=== PATIENT | male | born 1980 | race Caucasian/White ===

== ENCOUNTER 2019-04-07 20:00 | Outpatient (CLI) | payer BC, SELFPAY | END 2019-04-07 20:01 | disposition home or self-care (01) | LOC: SLEEP 04-08 09:31 | PROVIDERS: Family Provider Nurse Practitioner Family; Visit Provider Nurse Practitioner Family | DX: G47.33 Obstructive sleep apnea (adult) (pediatric) (principal) | CPT/HCPCS: 95810 ==

== ENCOUNTER 2019-05-06 20:00 | Outpatient (CLI) | payer BC, SELFPAY | END 2019-05-06 20:01 | disposition home or self-care (01) | LOC: SLEEP 05-07 09:42 | PROVIDERS: Family Provider Nurse Practitioner Family; Visit Provider Nurse Practitioner Family | DX: G47.33 Obstructive sleep apnea (adult) (pediatric) (principal) | CPT/HCPCS: 95810; 95811 ==

== ENCOUNTER 2020-09-13 09:07 | Outpatient (CLI) | payer BC, SELFPAY | END 2020-09-13 09:08 | disposition home or self-care (01) | LOC: WOUND 09:08 | PROVIDERS: Family Provider Nurse Practitioner Family; Visit Provider Thoracic Surgery (Cardiothoracic Vascular Surgery) | DX: L97.822 Non-pressure chronic ulcer of other part of left lower leg with fat layer exposed (principal) | CPT/HCPCS: 11042 ==

== ENCOUNTER 2020-09-15 14:11 | Outpatient (CLI) | payer BC, SELFPAY | END 2020-09-15 14:12 | disposition home or self-care (01) | LOC: WOUND 14:11 | PROVIDERS: Family Provider Nurse Practitioner Family; Visit Provider Nurse Practitioner Family | DX: L97.822 Non-pressure chronic ulcer of other part of left lower leg with fat layer exposed (principal) | CPT/HCPCS: 29581 ==

== ENCOUNTER 2020-09-22 07:41 | Outpatient (CLI) | payer BC, SELFPAY | END 2020-09-22 07:42 | disposition home or self-care (01) | LOC: WOUND 07:42 | PROVIDERS: Family Provider Nurse Practitioner Family; Visit Provider Thoracic Surgery (Cardiothoracic Vascular Surgery) | DX: I87.2 Venous insufficiency (chronic) (peripheral) (principal); L97.822 Non-pressure chronic ulcer of other part of left lower leg with fat layer exposed | CPT/HCPCS: 97597 ==

== ENCOUNTER 2020-09-29 08:41 | Outpatient (CLI) | payer BC, SELFPAY | END 2020-09-29 08:42 | disposition home or self-care (01) | LOC: WOUND 08:41 | PROVIDERS: Family Provider Nurse Practitioner Family; Visit Provider Surgery | DX: I87.2 Venous insufficiency (chronic) (peripheral) (principal); L97.822 Non-pressure chronic ulcer of other part of left lower leg with fat layer exposed | CPT/HCPCS: 11042 ==

== ENCOUNTER 2020-10-03 13:53 | Outpatient (CLI) | payer BC, SELFPAY | END 2020-10-03 13:54 | disposition home or self-care (01) | LOC: WOUND 13:54 | PROVIDERS: Family Provider Nurse Practitioner Family; Visit Provider Thoracic Surgery (Cardiothoracic Vascular Surgery) | DX: I87.2 Venous insufficiency (chronic) (peripheral) (principal); L97.822 Non-pressure chronic ulcer of other part of left lower leg with fat layer exposed | CPT/HCPCS: G0463 ==

== ENCOUNTER 2020-10-10 09:01 | Outpatient (CLI) | payer BC, SELFPAY | END 2020-10-10 09:02 | disposition home or self-care (01) | LOC: WOUND 09:02 | PROVIDERS: Family Provider Nurse Practitioner Family; Visit Provider Nurse Practitioner Family | DX: Z09 Encounter for follow-up examination after completed treatment for conditions other than malignant neoplasm (principal) | CPT/HCPCS: 99212 ==

== ENCOUNTER 2021-11-09 02:45 | Emergency (ER) | payer BC, SELFPAY ==
[2021-11-09 02:53] VITALS: BP 199/118; PULSE 102; RESP 20; TEMP 37.1; O2SAT 96; BMI 73.7
[2021-11-09 02:58] VITALS: PULSE 84; O2SAT 96
--- NOTE | 2021-11-09 02:59 | CTR_ITS ---
PROCEDURE INFORMATION: Exam: CT Abdomen And Pelvis Without Contrast Exam date and time: 11/09/2021 3:25 AM Age: 41 years old Clinical indication: Abdominal pain; Localized; Right upper quadrant (ruq); Prior surgery; Surgery type: Lap band. Appy; Patient HX: Ruq pain with nausea; Additional info: Abd pain TECHNIQUE: Imaging protocol: Computed tomography of the abdomen and pelvis without contrast. Radiation optimization: All CT scans at this facility use at least one of these dose optimization techniques: automated exposure control; mA and/or kV adjustment per patient size (includes targeted exams where dose is matched to clinical indication); or iterative reconstruction. COMPARISON: CT abdomen pelvis w con* [id number] 08/18/2018 11:09 PM RADIATION DOSE METRICS: Total DLP (mGy-cm): 2622.93 FINDINGS: Liver: Normal. No mass. Gallbladder and bile ducts: Normal. No calcified stones. No ductal dilation. Pancreas: Normal. No ductal dilation. Spleen: Normal. No splenomegaly. Adrenal glands: Normal. No mass. Kidneys and ureters: Normal. No hydronephrosis. Stomach and bowel: Continued previous lap band surgery. Appendix: Stable appendectomy. Intraperitoneal space: Unremarkable. No free air. No significant fluid collection. Vasculature: Unremarkable. No abdominal aortic aneurysm. Lymph nodes: Unremarkable. No enlarged lymph nodes. Urinary bladder: Unremarkable as visualized. Reproductive: Unremarkable as visualized. Bones/joints: Unremarkable. No acute fracture. Soft tissues: Unremarkable. CT/CT abdomen pelvis wo con [id number] IMPRESSION: 1. Continued previous lap band surgery. 2. Stable appendectomy.
--- NOTE | 2021-11-09 03:05 | ED_ITS ---
HPI - Abdominal Pain General: Chief Complaint: Abdominal Pain Stated Complaint: abd pain Time Seen by Provider: 11/09/21 02:57 Source: patient Mode of arrival: ambulatory Limitations: no limitations History of Present Illness: 41-year-old male states he started having severe epigastric and right upper quadrant pain 5 hours ago he states pain sharp in nature rates it a 7 out of 10 he had some nausea denies any vomiting he denies any radiation of his pain denies any chest pain. He has had a history of an appendectomy and a Lap-Band surgery before. Associated Symptoms: Denies chills, dysuria and fever(s) Review of Systems Const: Denies: fever(s), chills, body aches or change in appetite Eyes: Denies: blurry vision or eye discomfort ENMT: Denies: throat pain or dental pain Card: Denies: chest pain Resp: Denies: dyspnea GI: Reports: abdominal pain : Denies: dysuria Musc: Denies: neck pain or back pain Skin/Breast: Denies: rash Neuro: Denies: headache(s) Psych: Denies: depression Quirino/Lymph: Denies: easy bruising All/Imm: Denies: urticaria PFSH ED PFSH: Medical History (Updated 11/09/21 @ 04:05 by Donato Morris MD) Obesity Social History Smoking and tobacco status: current every day smoker Physical Exam Const: COMMON NORMALS: no acute distress, patient oriented x3 and healthy appearing HENMT: COMMON NORMALS: normocephalic and atraumatic HEAD & SCALP: normoceph alic and atraumatic Eye: COMMON NORMALS: Equal, round and reactive pupils present and EOMs intact bilaterally PUPIL: Yes Equal, round and reactive pupils present Neck/C-Spine: COMMON NORMALS: full ROM and supple Chest: COMMONS NORMALS: normal inspection of the chest and normal palpation of entire chest wall Resp: COMMON NORMALS: normal respiratory effort, No retractions, No use of accessory muscles and clear to auscultation bilaterally AUSCULTATION: clear to auscultation bilaterally Cardio: COMMON NORMALS: regular rate, regular rhythm and No murmurs present (Cardio) RATE: regular rate RHYTHM: regular rhythm GI: COMMON NORMALS: Normal to inspection, nondistended, normoactive bowel sounds present, Soft to palpation and no masses PALPATION: Yes Soft to palpation and Yes Tenderness to palpation present (GI) Details: RUQ Extremity: COMMON NORMALS: normal to inspection and full ROM Neuro: COMMON NORMALS: patient oriented x3, moves all extremities and no focal motor deficits Psych: COMMON NORMALS: mental status grossly normal, Normal thought process present and cooperative THOUGHT PROCESS: Normal thought process present Skin: COMMON NORMALS: no rashes or lesions noted and no wounds GENERAL SKIN EXAM: no rashes or lesions noted Course Vital Signs: Vital signs: Vital Signs Temperature 98.7 F 11/09/21 02:53 Pulse Rate 74 11/09/21 04:00 Respiratory Rate 16 11/09/21 04:00 Blood Pressure 162/109 11/09/21 04:00 Pulse Oximetry 91 11/09/21 04:00 Oxygen Delivery Me thod 11/09/21 04:00 MDM - Abdominal Pain Medical Decision Making Patient presents here with abdominal pain likely gastritis his pain is improved here after GI cocktail is CT scan here is normal blood work is normal he stable for discharge she is to follow-up with PCP and return if worsening he understands agrees to plan. Lab Data : 11/09/21 03:05 11/09/21 03:05 Labs/Radiology: Radiology Impressions Abdomen/Pelvis CT 11/09/21 02:59 IMPRESSION: 1. Continued previous lap band surgery. 2. Stable appendectomy. Laboratory Results WBC 8.3 10^3/uL (4.0-10.0) 11/09/21 03:05 RBC 5.42 10^6/uL (4.1-5.3) H 11/09/21 03:05 Hgb 16.0 g/dL (11.7-16.6) 11/09/21 03:05 Hct 49.9 % (42.0-52.0) 11/09/21 03:05 MCV 92.1 fl (80-94) 11/09/21 03:05 MCH 29.5 pg (28.0-34.0) 11/09/21 03:05 MCHC 32.1 g/dL (30.0-36.0) 11/09/21 03:05 RDW 14.7 % (12.1-15.1) 11/09/21 03:05 Plt Count 313 10^3/cmm (130-400) 11/09/21 03:05 MPV 9.6 fL (7.4-10.4) 11/09/21 03:05 Neut % (Auto) 57.3 % 11/09/21 03:05 Lymph % (Auto) 23.4 % 11/09/21 03:05 [place]asta % (Auto) 11.8 % 11/09/21 03:05 Eos % (Auto) 6.5 % 11/09/21 03:05 Baso % (Auto) 0.5 % 11/09/21 03:05 Neut # (Auto) 4.77 10^3/uL (1.8-7.7) 11/09/21 03:05 Lymph # (Auto) 2.0 10^3/uL (0.8-4.8) 11/09/21 03:05 [place] # (Auto) 1.0 10^3/uL (0.2-0.9) H 11/09/21 03:05 Eos # (Auto) 0.5 10^3/uL (0.0-0.8) 11/09/21 03:05 Baso # (Auto) 0.0 10^3/uL (0.0-0.1) 11/09/21 03:05 Nucleated RBC % (auto) 0 % 11/09/21 03:05 Nucleated RBCs # 0.0 /100WBC 11/09/21 03:05 Sodium 139 mmol/L (136-145) 11/09/21 03:05 Potassium 4.3 mmol/L (3.5-5.1) 11/09/21 03:05 Chloride 103 mmol/L (98-107) 11/09/21 03:05 Carbon Dioxide 25 mmol/L (22-29) 11/09/21 03:05 Anion Gap 15.3 (5-19) 11/09/21 03:05 BUN 12 mg/dL (6-20) 11/09/21 03:05 Creatinine 0.7 mg/dL (0.7-1.2) 11/09/21 03:05 GFR Calculation 123.7 mL/min (90-130) 11/09/21 03:05 Glucose 109 mg/dL (65-115) 11/09/21 03:05 Calculated Osmolality 288 mOsm/kg (285-295) 11/09/21 03:05 Calcium 8.9 mg/dL (8.5-10.5) 11/09/21 03:05 Total Bilirubin 0.5 mg/dL (0.15-1.2) 11/09/21 03:05 AST 15 U/L (0-40) 11/09/21 03:05 ALT 22 U/L (0-41) 11/09/21 03:05 Alkaline Phosphatase 80 U/L (40-130) 11/09/21 03:05 Total Protein 7.6 g/dL (6.6-8.7) 11/09/21 03:05 Albumin 4.0 g/dL (3.5-5.2) 11/09/21 03:05 Globulin 3.6 g/dL (1.3-4.6) 11/09/21 03:05 Lipase 19 U/L (13-60) 11/09/21 03:05 EKG Data EKG 1: I personally reviewed and interpreted this EKG as follows: EKG interpretation date: 11/09/21 EKG interpretation time: 03:20 Interpretation: nsr hr [address] or t wave abnormalities qrs 89 qtc 414 Discharge Plan Discharge Patient Disposition: Home Clinical Impression: Abdominal pain Condition: Stable Prescriptions: New Protonix 40 mg tablet,delayed release (DR/EC) 40 mg PO DAILY Qty: 60 0RF Discharge Orders: Discharge ED (Routine); Ordered 11/09/21 Ordered By: Donato Morris Referrals: David Jose DO [Primary Care Provider] - 1-3 days Discharge Diet: Advance as tolerated Discharge Activity: Resume usual activity Patient Instructions: Abdominal Pain (ED) Coding Level of Care Code ED Adult Literacy Instructor for Chg Fwd Exam Comprehensive
--- NOTE | 2021-11-09 03:06 | ECG_ITS ---
[facility] Test Date: 2021-11-09 Pat Name: Vern Gallo Department: Room: Gender: Male Medical Accountant: : 1980 Requested By: Donato Morris Order Number: [id number] Erik MD: Dhaval Bragg M.D. Measurements Intervals [place] Rate: 76 P: 12 TX: 152 QRS: 28 QRSD: 89 T: 35 QT: 384 QTc: 432 Interpretive Statements SINUS RHYTHM Compared to ECG 08/19/2018 01:15:14 T-wave abnormality no longer present Electronically Signed On 11-10-2021 9:18:44 CDT by Dhaval Bragg M.D. [email or web address] point mature adult care unitEversnapdunlap memorial hospital.[employer]/store/OM/[id number]
[2021-11-09 03:20] LABS: Basophils % 0.5 %; Eosinophils # 0.5 10^3/uL (0.0-0.8); Eosinophils % 6.5 %; Hematocrit 49.9 % (42.0-52.0); Lymphocytes % 23.4 %; Mean Corpuscular HGB Conc 32.1 g/dL (30.0-36.0); Mean Corpuscular Hemoglobin 29.5 pg (28.0-34.0); Mean Corpuscular Volume 92.1 fl (80-94); Mean Platelet Volume 9.6 fL (7.4-10.4); Monocytes % 11.8 %; Neutrophils # 4.77 10^3/uL (1.8-7.7); Neutrophils % 57.3 %; Nucleated Red Blood Cells % 0 %; Platelet Count 313 10^3/cmm (130-400); Red Blood Count 5.42 10^6/uL (4.1-5.3); Red Cell Distribution Width 14.7 % (12.1-15.1); White Blood Count 8.3 10^3/uL (4.0-10.0)
[2021-11-09] MEDS: lidocaine 2% viscous 15 ML, aluminum-mag hydrox-simethicon 30 ML, sucralfate oral liq 1 GM PO (03:23)
[2021-11-09] MEDS: HYDROmorphone 1 mg/mL INJ 1 mL 0.5 MG IVP (03:23)
[2021-11-09] MEDS: ondansetron 2 mg/ML SDV 2 mL 4 MG IVP (03:23)
[2021-11-09] MEDS: labetalol 5 mg/mL SDV 20mL 10 MG IVP (03:40)
[2021-11-09 03:44] VITALS: BP 173/104; PULSE 75; O2SAT 94
[2021-11-09 03:48] LABS: Alanine Aminotransferase 22 U/L (0-41); Alkaline Phosphatase 80 U/L (40-130); Anion Gap 15.3 (5-19); Aspartate Amino Transferase 15 U/L (0-40); Blood Urea Nitrogen 12 mg/dL (6-20); Calcium 8.9 mg/dL (8.5-10.5); Carbon Dioxide 25 mmol/L (22-29); Chloride 103 mmol/L (98-107); Globulin 3.6 g/dL (1.3-4.6); Glomerular Filtration Rate 123.7 mL/min (90-130); Glucose 109 mg/dL (65-115); Lipase 19 U/L (13-60); Osmolality Calculated 288 mOsm/kg (285-295); Potassium 4.3 mmol/L (3.5-5.1); Sodium 139 mmol/L (136-145); Total Bilirubin 0.5 mg/dL (0.15-1.2); Total Protein 7.6 g/dL (6.6-8.7)
[2021-11-09 04:00] VITALS: BP 162/109; PULSE 74; RESP 16; O2SAT 91
[2021-11-09] MEDS: HYDROcodone-acetaminophen 5-325 mg Tablet 1 TAB PO (04:35)
[2021-11-09 04:40] VITALS: BP 170/102; PULSE 70; RESP 17; O2SAT 94
== END 2021-11-09 04:41 | disposition home or self-care (01) ==
PROVIDERS: Emergency Provider Emergency Medicine; PCP Internal Medicine Gastroenterology
DX: R10.9 Unspecified abdominal pain (principal); F17.210 Nicotine dependence, cigarettes, uncomplicated
CPT/HCPCS: 74176; 80053; 83690; 85025; 93005; 96374; 96375; 99285; J1170; J2405; J3490

== ENCOUNTER 2022-09-03 11:05 | Emergency (ER) | payer OTHER, SELFPAY ==
[2022-09-03 11:11] VITALS: BP 178/95; PULSE 96; RESP 20; TEMP 36.6; O2SAT 95
--- NOTE | 2022-09-03 11:19 | XR_ITS ---
WS: [id number] EXAMINATION: XR chest 1V portable [id number] REASON FOR EXAM: dyspnea coughing ORDER DATE: 09/03/2022 11:21 AM FINDINGS: There are perihilar and parenchymal granulomatous calcifications. Cardiomegaly is demonstrated. Ther e is an atherosclerotic aorta containing calcified plaque. There are no pleural effusions. XR/XR chest 1V portable [id number] IMPRESSION: CARDIOMEGALY WITH NO ACUTE PULMONARY CHANGE.
--- NOTE | 2022-09-03 11:21 | ED_ITS ---
HPI - SOB/Dyspnea General: Chief Complaint: Shortness of Breath/Dyspnea Stated Complaint: SOB Time Seen by Provider: 09/03/22 11:16 History of Present Illness: HPI Narrative: Patient presents ER with complaints of shortness of breath over the last for 5 days. Patient has been coughing a lot of green-colored sputum. Patient gets short of breath with any exertion. Patient says his swelling in his bilateral lower extremities may be worse than normal. MD elicited complaint: shortness of breath and cough Onset (ago): day(s) (5 days ago) Timing: constant Severity: mild Exacerbating factors: exertion Relieving factors: nothing Associated symptoms: Reports cough Treatment prior to arrival: none Review of Systems General: Reports: 10 or more systems reviewed and unremarkable except in HPI and below PFSH ED PFSH: Medical History Obesity Social History Smoking and tobacco status: current every day smoker Physical Exam Const: COMMON NORMALS: no acute distress, patient oriented x3, no limitations, alert and well nourished NUTRITIONAL APPEARANCE: obese HENMT: COMMON NORMALS: normocephalic, atraumatic, hearing grossly normal bilaterally, external ears normal, Normal external nose present and moist oral mucous membranes HEAD & SCALP: normocephalic and atraumatic NOSE: Normal external nose present EXTERNAL EAR: Yes external ears normal Eye: COMMON NORMALS: Equal, round and reactive pupils present, EOMs intact bilaterally, conjunctivae normal and no scleral icterus CONJUNCTIVA: Yes conjunctivae normal PUPIL: Yes Equal, round and reactive pupils present Neck/C-Spine: COMMON NORMALS: full ROM, no lymphadenopathy, supple, no meningeal signs, no JVD and Thyroid normal THYROID: Thyroid normal Chest: COMMONS NORMALS: normal inspection of the chest and normal palpation of entire chest wall Resp: OTHER: Clear but decreased secondary to body habitus Cardio: COMMON NORMALS: no JVD, regular rate, regular rhythm, S1 normal heart sound present and S2 normal heart sound present RATE: regular rate RHYTHM: regular rhythm HEART SOUNDS: S1 normal heart sound present and S2 normal heart sound present GI: COMMON NORMALS: Normal to inspection, nondistended, normoactive bowel sounds present, Soft to palpation, non-tender, No hepatosplenomegaly present and no masses PALPATION: Yes Soft to palpation and Yes No hepatosplenomegaly present Extremity: OTHER: 2-3+ pitting edema bilateral lower extremities up to at least the knees Neuro: COMMON NORMALS: patient oriented x3 SENSORIUM/ORIENTATION: Yes alert MENINGEAL SIGNS: Yes no meningeal signs Course Vital Signs: Vital signs: Vital Signs Temperature 97.9 F 09/03/22 11:11 Pulse Rate 89 09/03/22 12:13 Respiratory Rate 20 H 09/03/22 11:11 Blood Pressure 164/126 09/03/22 12:13 Pulse Oximetry 96 09/03/22 12:13 Oxygen Delivery Me thod Room Air 09/03/22 12:13 MDM - SOB/Dyspnea Medical Decision Making Patient presents to the ER with shortness of breath and cough for about 3 days. Patient's O2 sat stayed above 90% the entire time he was here patient is morbidly obese. Lab work and x-ray was obtained which is essentially benign. Patient will be given 1 DuoNeb treatment and if it seems to symptomatically help his shortness of breath he will be discharged with a prescription for DuoNeb. Patient should follow-up with his PCP in the next 7 to 10 days. Differential Diagnosis Likely congestive heart failure and community acquired pneumonia; Unlikely acute exacerbation of chronic obstructive airways disease, asthma with exacerbation or pulmonary embolism Medical Records I reviewed the patient's medical records. Lab Data I reviewed the patient's lab results. 09/03/22 11:27 09/03/22 11:27 Labs/Radiology: Radiology Impressions Chest X-Ray 09/03/22 11:19 IMPRESSION: CARDIOMEGALY WITH NO ACUTE PULMONARY CHANGE. Laboratory Results WBC 10.4 10^3/uL (4.0-10.0) H 09/03/22 11:27 RBC 4.62 10^6/uL (4.1-5.3) 09/03/22 11:27 Hgb 13.4 g/dL (11.7-16.6) 09/03/22 11:27 Hct 42.0 % (42.0-52.0) 09/03/22 11:27 MCV 90.9 fl (80-94) 09/03/22 11:27 MCH 29.0 pg (28.0-34.0) 09/03/22 11:27 MCHC 31.9 g/dL (30.0-36.0) 09/03/22 11:27 RDW 14.0 % (12.1-15.1) 09/03/22 11:27 Plt Count 262 10^3/cmm (130-400) 09/03/22 11:27 MPV 9.6 fL (7.4-10.4) 09/03/22 11:27 Neut % (Auto) 68.3 % 09/03/22 11:27 Lymph % (Auto) 14.7 % 09/03/22 11:27 [place]ne % (Auto) 12.7 % 09/03/22 11:27 Eos % (Auto) 3.6 % 09/03/22 11:27 Baso % (Auto) 0.3 % 09/03/22 11:27 Neut # (Auto) 7.08 10^3/uL (1.8-7.7) 09/03/22 11:27 Lymph # (Auto) 1.5 10^3/uL (0.8-4.8) 09/03/22 11:27 [place]ne # (Auto) 1.3 10^3/uL (0.2-0.9) H 09/03/22 11:27 Eos # (Auto) 0.4 10^3/uL (0.0-0.8) 09/03/22 11:27 Baso # (Auto) 0.0 10^3/uL (0.0-0.1) 09/03/22 11:27 Nucleated RBC % (auto) 0 % 09/03/22 11:27 Nucleated RBCs # 0.0 /100WBC 09/03/22 11:27 Sodium 138 mmol/L (136-145) 09/03/22 11:27 Potassium 4.1 mmol/L (3.5-5.1) 09/03/22 11:27 Chloride 102 mmol/L (98-107) 09/03/22 11:27 Carbon Dioxide 23 mmol/L (22-29) 09/03/22 11:27 Anion Gap 17.1 (5-19) 09/03/22 11:27 BUN 11 mg/dL (6-20) 09/03/22 11:27 Creatinine 0.7 mg/dL (0.7-1.2) 09/03/22 11:27 GFR Calculation 123.7 mL/min (90-130) 09/03/22 11:27 Glucose 95 mg/dL (65-115) 09/03/22 11:27 Calculated Osmolality 285 mOsm/kg (285-295) 09/03/22 11:27 Calcium 8.6 mg/dL (8.5-10.5) 09/03/22 11:27 Total Bilirubin 0.9 mg/dL (0.15-1.2) 09/03/22 11:27 AST 20 U/L (0-40) 09/03/22 11:27 ALT 25 U/L (0-41) 09/03/22 11:27 Alkaline Phosphatase 68 U/L (40-130) 09/03/22 11:27 NT-Pro-B Natriuret Pep 247 pg/mL (0-125) H 09/03/22 11:27 Total Protein 7.2 g/dL (6.6-8.7) 09/03/22 11:27 Albumin 3.4 g/dL (3.5-5.2) L 09/03/22 11:27 Globulin 3.8 g/dL (1.3-4.6) 09/03/22 11:27 Influenza Type A Ag negative (Negative) 09/03/22 11:37 Influenza Type B Ag negative (Negative) 09/03/22 11:37 SARS-CoV-2 Ag (Rapid) negative (Negative) 09/03/22 11:37 Discharge Plan Discharge Patient Disposition: Home Clinical Impression: Acute dyspnea Obesity Qualifiers: Obesity type: unspecified obesity type Obesity classification: unspecified obesity classification Serious obesity comorbidity presence: unspecified whether serious comorbidity present Qualified Code(s): E66.9 - Obesity, unspecified Condition: Stable Prescriptions: New albuterol sulfate 2.5 mg/0.5 mL solution for nebulization 2.5 mg inhalation QID PRN (Reason: shortness of breath or wheezing) Qty: 30 0RF No Action Protonix 40 mg tablet,delayed release (DR/EC) 40 mg PO DAILY Qty: 60 0RF Discharge Orders: Discharge ED (Routine); Ordered 09/03/22 Ordered By: Joshua Baxter Referrals: David Jose DO [Primary Care Provider] - Patient Instructions: Dyspnea Activity Restrictions/Additional Instructions: Follow-up with your PCP in approximately 7 to 10 days for further work-up. Please use your nebulizer with albuterol as prescribed. Please return to the ER for worsening symptoms and signs. Coding Level of Care Code ED Blaster Helper for Daly Godfrey
[2022-09-03 11:40] LABS: Basophils % 0.3 %; Eosinophils # 0.4 10^3/uL (0.0-0.8); Eosinophils % 3.6 %; Hemoglobin 13.4 g/dL (11.7-16.6); Lymphocytes # 1.5 10^3/uL (0.8-4.8); Lymphocytes % 14.7 %; Mean Corpuscular HGB Conc 31.9 g/dL (30.0-36.0); Mean Corpuscular Volume 90.9 fl (80-94); Mean Platelet Volume 9.6 fL (7.4-10.4); Monocytes # 1.3 10^3/uL (0.2-0.9); Monocytes % 12.7 %; Neutrophils # 7.08 10^3/uL (1.8-7.7); Neutrophils % 68.3 %; Nucleated Red Blood Cells % 0 %; Platelet Count 262 10^3/cmm (130-400); Red Blood Count 4.62 10^6/uL (4.1-5.3); White Blood Count 10.4 10^3/uL (4.0-10.0)
[2022-09-03 12:07] LABS: Influenza A by IFA negative (Negative); Influenza B by IFA negative (Negative); SARS Covid-2 Antigen negative (Negative)
[2022-09-03 12:09] LABS: Alanine Aminotransferase 25 U/L (0-41); Albumin Level 3.4 g/dL (3.5-5.2); Alkaline Phosphatase 68 U/L (40-130); Anion Gap 17.1 (5-19); Aspartate Amino Transferase 20 U/L (0-40); Blood Urea Nitrogen 11 mg/dL (6-20); Calcium 8.6 mg/dL (8.5-10.5); Carbon Dioxide 23 mmol/L (22-29); Chloride 102 mmol/L (98-107); Globulin 3.8 g/dL (1.3-4.6); Glomerular Filtration Rate 123.7 mL/min (90-130); Glucose 95 mg/dL (65-115); NT Pro B Type Natriuretic Pept 247 pg/mL (0-125); Osmolality Calculated 285 mOsm/kg (285-295); Potassium 4.1 mmol/L (3.5-5.1); Sodium 138 mmol/L (136-145); Total Bilirubin 0.9 mg/dL (0.15-1.2); Total Protein 7.2 g/dL (6.6-8.7)
[2022-09-03 12:13] VITALS: BP 164/126; PULSE 89; O2SAT 96
[2022-09-03 12:55] VITALS: PULSE 79; RESP 22; O2SAT 97
[2022-09-03] MEDS: ipratropium-albuterol 3 mL Neb INHALATION (13:00)
[2022-09-03 13:13] VITALS: PULSE 89
[2022-09-03 13:21] VITALS: BP 195/109; PULSE 90; O2SAT 95
== END 2022-09-03 13:23 | disposition home or self-care (01) ==
PROVIDERS: Emergency Provider Emergency Medicine; PCP Internal Medicine Gastroenterology
DX: R06.00 Dyspnea, unspecified (principal); E66.9 Obesity, unspecified; Z68.45 Body mass index [BMI] 70 or greater, adult; Z20.822 Contact with and (suspected) exposure to COVID-19; F17.210 Nicotine dependence, cigarettes, uncomplicated
CPT/HCPCS: 36415; 71045; 80053; 83880; 85025; 87426; 87804; 94640; 99284

== ENCOUNTER → 2023-06-02 15:13 | Outpatient (BNVA) | payer OTHER, SELFPAY | PROVIDERS: PCP Internal Medicine Gastroenterology; Visit Provider Family Medicine | DX: R10.11 Right upper quadrant pain (principal); Z00.00 Encounter for general adult medical examination without abnormal findings | CPT/HCPCS: 80053; 80061; 86803; 87806 ==

== ENCOUNTER → 2024-04-13 14:41 | Outpatient (BNVA) | payer OTHER, SELFPAY | PROVIDERS: PCP Family Medicine; Visit Provider Family Medicine | DX: I10 Essential (primary) hypertension (principal) | CPT/HCPCS: 80053 ==

== ENCOUNTER 2024-05-03 06:16 | Day surgery (SDC) | payer OTHER, SELFPAY ==
--- NOTE | 2024-05-02 12:21 | P.ANESASSM_ITS ---
Pre-Anesthetic Assessment Height/Weight: Height 5 ft 8 in Operation Date: 05/03/24 07:30 Proposed Procedures p EGD 50915, R10.13, R12(Not Applicable) - Franklin Dawson MD Anesthetic Plan ASA status: 3 Anesthesia: Choice Other: No prior issues with anesthesia NPO since yesterday evening History of hypertension on lisinopril GERD on omeprazole ANITHA on CPAP BMI 75, 498 pounds Chronic smoker Labs reviewed 04/13/2024 and acceptable for procedure EKG sinus rhythm Medications/Allergies Home Medications ?Medication ?Instructions ?Recorded ?Confirmed ?Last Taken ?Type ondansetron 8 mg disintegrating 8 mg PO Q8H PRN nausea and 03/30/24 04/29/24 Unknown Rx tablet vomiting #10 tabs tramadol 50 mg tablet 50 mg PO Q8H PRN pain 3 days #10 04/06/24 04/29/24 04/29/24 Rx tabs sucralfate 100 mg/mL oral 10 ml PO BID 30 days #840 mL 04/09/24 04/29/24 04/29/24 Rx suspension lisinopril 20 mg tablet 20 mg PO DAILY 04/29/2404/1704/29/24 History omeprazole 40 mg capsule,delayed 40 mg PO BID 04/29/24 04/29/24 04/29/24 History release Allergies Allergy/AdvReac Type Severity Reaction Status Date / Time Penicillins Allergy Unknown Verified 04/29/24 08:58 [facility] Anesthesia Medical History Smoker Cardiomegaly Atherosclerosis Obesity Surgical History History of tonsillectomy and adenoidectomy History of laparoscopic adjustable gastric banding History of appendectomy Family History Mother Hypertension CAD (coronary artery disease) Brother Stroke CAD (coronary artery disease) ALS (amyotrophic lateral sclerosis) Social History Smoking and tobacco/nicotine status: current every day tobacco/nicotine user cigarettes Packs smoked per day: 0.5 Quit status (tobacco/nicotine): considering quitting Alcohol intake: current Alcohol intake frequency: holidays/special occasions only Substance/Drug Use: never Lives independently: Yes Household members: family Marital status: Number of children: 0 Current occupational status: employed Current occupation: [employer] Leisure activites: [employer] Special irena needs: No Agree to transfusion: Yes Data Anesthesia Cardiac Studies: No Data to Display
[2024-05-03] VITALS (10 sets, daily range): BP systolic 134–154; BP diastolic 77–102; PULSE 73–87; RESP 10–18; TEMP 36.1–36.6; O2SAT 92–96; BMI 75.6
--- NOTE | 2024-05-03 07:01 | W.PM.OPSUD ---
Surgery/Procedure H&P Update DATE OF PROCEDURE: May 03, 2024 DATE H&P PERFORMED: 04/05/24 H&P UPDATE INFORMATION: I have reviewed H&P completed within last 30 days, I have examined patient prior to procedure and No changes to prior documentation PLANNED PROCEDURE: Operation Date: 05/03/24 07:30 Proposed Procedures p EGD 46526, R10.13, R12(Not Applicable) - Franklin Dawson MD
--- NOTE | 2024-05-03 09:05 | ANE.PACU2 ---
Inpatient post-anesthesia follow up: Airway intact: Yes Vital signs: Temperature 97.6 F Pulse Rate 74 Respiratory Rate 14 Blood Pressure 154/94 Pulse Oximetry 96 Oxygen Delivery Me thod Room Air Oxygen Flow Rate Fraction of Inspir ed Oxygen Hydration adequate: Yes Nausea and vomiting: No Pain level: 1 Mental status: Baseline
== END 2024-05-03 09:05 | disposition home or self-care (01) ==
PROVIDERS: PCP Family Medicine; Visit Provider Student in an Organized Health Care Education/Training Program
PROC: 0DJ08ZZ Inspection of Upper Intestinal Tract, Via Natural or Artificial Opening Endoscopic (ICD-10-PCS; principal; 2024-05-03 07:30)
DX: K29.50 Unspecified chronic gastritis without bleeding (principal); I10 Essential (primary) hypertension; Z79.899 Other long term (current) drug therapy; G47.33 Obstructive sleep apnea (adult) (pediatric); K21.9 Gastro-esophageal reflux disease without esophagitis; Z68.45 Body mass index [BMI] 70 or greater, adult; Z88.0 Allergy status to penicillin; Z98.84 Bariatric surgery status; F17.210 Nicotine dependence, cigarettes, uncomplicated; R19.7 Diarrhea, unspecified
CPT/HCPCS: 43239; 88305; J0330; J2704; J3490

== ENCOUNTER 2024-11-26 16:32 | Inpatient (IN) | payer SELFPAY ==
--- OUTSIDE RECORDS SUMMARY | 2018-01-19 08:23 | XMS_ITS | Continuity of Care Document ---
Author Organization [facility] Address [address] [place] [id number] Phone Care Team Providers Care Aquatics Lifeguard Name Role Phone Alonso Menendez Unavailable Unavailable Advance Directives Directive Yes / No Effective Date File Name No Information Encounters Encounter Description Practice Location Reason(s) For Visit Diagnoses Date Provider Providers Copied on Encounter [facility], [address] [place] [address], [facility], tel:[phone] *[facility] No Information Gemma Gupta. [address] [place] [address], [facility], [place]. tel:[phone] Family History Family Member Type Diagnosis Age At Onset No Information Payers Payer name Insurance type Covered libertarian ID Authoriza tion(s) No Information Social History Type Description Quantity Date Captured Comments Sex Male Smoking Status No Information Chief Complaint And Reason For Visit No Information Reason For Referral Reason For Referral No Information History Of Present Illness Encounter Date Complaint History Of Prese nt Illness No Information Functional Status Date Functional Assessmen t No Information Instructions Date Instruction Additional Infor mation No Information Assessments Type Assessment Date No Information Patient Care Teams Name Effective Dates (start - stop) Status Members No Information
[2024-11-26] VITALS (10 sets, daily range): BP systolic 131–144; BP diastolic 49–88; PULSE 84–136; RESP 19–30; TEMP 37.6–39.6; O2SAT 92–96; BMI 79.0; BMI 83.3; BMI 83.8
--- NOTE | 2024-11-26 16:37 | ECG_ITS ---
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1980 Requested By: Irvin Talley Order Number: [id number] Erik MD: ARACELI VILLALTA Measurements Intervals [place] Rate: 133 P: 57 HI: 167 QRS: -28 QRSD: 84 T: 73 QT: 282 QTc: 419 Interpretive Statements SINUS TACHYCARDIA POSSIBLE RIGHT VENTRICULAR CONDUCTION DELAY [RSR (QR) IN V1/V2] SEPTAL MYOCARDIAL INFARCTION , PROBABLY OLD [40+ ms Q WAVE IN V1/V2] Compared to ECG 11/09/2021 03:20:00 Myocardial infarct finding now present Sinus rhythm no longer present Electronically Signed On 11-26-2024 20:08:39 CDT by ARACELI VILLALTA [email or web address]
--- OUTSIDE RECORDS SUMMARY | 2024-11-26 16:37 | XMS_ITS | Patient Health Record ---
Author Organization [facility] Address [address] [place] [address] Care Team Providers Care Manager Internship Name Role Phone Annmarie Castillo Primary Care Provider Allergies Allergen (clinical drug ingredient) Drug/Non Drug Allergy documented on EMR Reaction Allergy Type Onset Date Status Penicillin unknown Drug Allergy Active Reason For Referral No Information Medications Medication SIG (Take, Route, Frequency, Duration) Notes Start Date End Date Status Potassium Chloride ER 10 MEQ Capsule Extended Release 1 capsule with food Orally Twice a day; Duration: 30 day(s) 01/04/2020 Active Furosemide 20 MG Tablet 1 tablet Orally Once a day in AM; Duration: 30 day(s) Activ e metFORMIN HCl 500 MG Tablet 1 tablet with a meal Orally Once a day Active Benazepril HCl 20 MG Tablet 1 tablet Orally Once a day; Duration: 90 days 04/21/2019 Active Sertraline HCl 50 MG Tablet 1 tablet Orally Once a day; Duration: 90 days Active amLODIPine Besylate 10 MG Tablet 1 tablet Orally once daily in evening for blood pressure; Duration: 30 day(s) Active Social History Tobacco Use: Social History Observation Description Date Details (start date - stop date) Current Smoker NA - NA Social History Drugs/Alcohol: Social Info Question Answer Notes Alcohol Screen (Audit-C) Did you have a drink containing alcohol in the past year? No Points 0 Interpretation Negative Drugs Have you used drugs other than those for medical reasons in the past 12 months? No Tobacco Use: Social Info Question Answer Notes xTobacco Use/Smoking Are you a current smoker How often do you smoke cigarettes? every day How many cigarettes a day do you smoke? 11-20 How soon after you wake up do you smoke your first cigarette? 6-30 minutes Are you interested in quitting? Thinking about quitting Additional Details Category Social Info Options Details Drugs/Alcohol: Do you smoke marijuana? De nies Do you drink alcohol? No Problems Problem Type SNOMED Code ICD Code Onset Dates Problem Status W/U Status Risk Notes Problem Morbid obesity (835666200) Morbid obesity (278.01) 02/05/20 Problem resolved confirmed [id number]- Problem Obstructive sleep apnea syndrome (82921206) Obstructive sleep apnea (adult) (pediatric) (327.23) 02/05/20 Active confirmed [id number]- Problem Obstructive sleep apnea (34719318) Obstructive sleep apnea (G47.33) Active confirmed Problem Needs influenza immunization (073644060) Vaccination against other viral diseases, Influenza (V04.81) 02/05/20 Problem resolved confirmed [id number]- Problem Mixed anxiety and depressive disorder (676783825) Depression with anxiety (300.4) 02/05/20 Problem resolved confirmed [id number]- Problem Essential hypertension (63088165) Essential hypertension (401.1) 02/05/20 Active confirmed [id number]- Problem Impacted cerumen (83436205) External cerumen impaction (380.4) 02/05/20 Problem resolved confirmed [id number]- Problem Neoplasm 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 (59582908) Unspecified skin lesion (239.2) 02/05/20 Problem resolved confirmed [id number] 11- Plan Of Treatment No Information Insurance Providers Payer Name Payer Address Payer Phone Subscriber Number Group Number Insured Name Patient Relationship to Insured Coverage Start Date Coverage End Date BCBS ID Commercial [address] [address] [place] [address] [id number] Vern Gallo Self - patient is the insured Medical (General) History Medical History History ICD Code PREVENTIVE HEALTH MAINTENANCE Colonoscopy-Has never been done Occult Stool: Has never been done Cologuard: Has never been done Endoscopy- Has never been done Nuclear stress test- 2007 which was norm al Exercise stress test- Has never been don e Echocardiogram- Has never been done Carotid doppler- Has never been done CT chest- Has never been done Chest xray: Has never been done PFTS- Has never been done 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 Bone Density: Has never been done Influenza vaccine- 01/04/20 Pneumococcal vaccine- Given script 02/04 Prenvar 13- Has never been done Shingles vaccine- Has never been done Shingrix- Has never been done Tetanus vaccine- 01/2019 Pertussis Vaccine: 01/2019 Hep C screening: Has never been done Eye Exam: 05/2019 Diabetic foot exam: Has never been done Microalbumin (urine): 02/09/2019 PAST MEDICAL HISTORY Hypertension Type 2 diabetes Obesity Sleep apnea Asthma GERD Osteoarthritis Allergies; perennial Generalized anxiety disorder Depression Surgical History Surgery Date(Month/Year) Appendectomy 2007 Tonsillectomy/Adenoidectomy at age 9 Lap band surgery 2007 Hospitalization History Reason Date(Month/Year) Lap band surgery Tonsillectomy/Adenoidectomy Appendectomy
--- OUTSIDE RECORDS SUMMARY | 2024-11-26 16:37 | XMS_ITS | Clinical Summary ---
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
--- NOTE | 2024-11-26 16:44 | ED_ITS ---
HPI - General Adult 2 General: Chief complaint: Weakness Stated complaint: R leg swollen can't stay awake Time Seen by Provider: 11/26/24 16:37 History of Present Illness: 44-year-old male presents emergency room with right leg swollen inflamed and tender to the touch has not felt well. Has had a fever at home. Is difficult time staying awake. Has been somewhat short of breath as well. Denies any chest pain no abdominal pain no vomiting or diarrhea Associated symptoms: Deny chest pain, dyspnea or rash Related Data Home Medications ?Medication ?Instructions ?Recorded ?Confirmed No Known Home Medications 11/26/2411/15 Allergies Allergy/AdvReac Type Severity Reaction Status Date / Time Penicillins Allergy Unknown Verified 04/29/24 08:58 Review of Systems 2 Const: Denies: fever(s) or chills Card: Denies: chest pain Resp: Denies: dyspnea GI: Denies: abdominal pain : Denies: dysuria, urinary frequency or urinary urgency Musc: Denies: neck pain or back pain Skin/Breast: Denies: rash PFSH ED 2 PFSH: Medical History Smoker Cardiomegaly Atherosclerosis Obesity Surgical History History of tonsillectomy and adenoidectomy History of laparoscopic adjustable gastric banding History of appendectomy Family History Mother Hypertension CAD (coronary artery disease) Brother Stroke CAD (coronary artery disease) ALS (amyotrophic lateral sclerosis) Social History Smoking and tobacco/nicotine status: current every day tobacco/nicotine user cigarettes Packs smoked per day: 0.5 Quit status (tobacco/nicotine): considering quitting Alcohol intake: current Alcohol intake frequency: holidays/special occasions only Substance/Drug Use: never Lives independently: Yes Household members: family Marital status: Number of children: 0 Current occupational status: employed Current occupation: [employer] Leisure activites: [employer] Special irena needs: No Agree to transfusion: Yes Physical Exam 2 Const: GENERAL APPEARANCE: cooperative ORIENTATION/CONSCIOUSNESS: Yes awake, Yes oriented to person, Yes oriented to place and Yes oriented to time HENMT: COMMON NORMALS: normocephalic, atraumatic and hearing grossly normal bilaterally HEAD & SCALP: normocephalic and atraumatic Resp: COMMON NORMALS: normal respiratory effort, No retractions, No use of accessory muscles and clear to auscultation bilaterally AUSCULTATION: clear to auscultation bilaterally Cardio: COMMON NORMALS: regular rate, regular rhythm and No murmurs present (Cardio) RATE: regular rate RHYTHM: regular rhythm GI: COMMON NORMALS: Soft to palpation and No hepatosplenomegaly present A USCULTATION: Yes normoactive bowel sounds PALPATION: Yes Soft to palpation, No Tenderness to palpation present (GI), No Guarding due to palpation present (GI) and Yes No hepatosplenomegaly present Extremity: OTHER: Left lower leg red and inflamed skin indurated 3+ edema Neuro: SENSORIUM/ORIENTATION: Yes oriented to person, Yes oriented to place and Yes oriented to time Skin: COMMON NORMALS: no rashes or lesions noted GENERAL SKIN EXAM: no rashes or lesions noted Course 2 Vital Signs: Vital signs: Vital Signs Temperature 96.9 F L 11/29/24 11:59 Pulse Rate 100 11/29/24 12:02 Respiratory Rate 16 11/29/24 12:02 Blood Pressure 156/93 11/29/24 11:59 Pulse Oximetry 100 11/29/24 12:02 Oxygen Delivery Me thod Nasal Cannula 11/29/24 12:02 Oxygen Flow Rate 3 11/29/24 12:02 [facility] - General Adult Medical Decision Making Left lower leg cellulitis. Will start on IV antibiotics discussed with hospitalist. Patient has sepsis with acute renal failure but no septic shock. Laboratory test reviewed antibiotics initiated. Orders written Medical Records I reviewed the patient's medical records. Lab Data I reviewed the patient's lab results. 11/28/24 10:07 11/28/24 10:07 Radiology Impressions Venous Duplex 11/26/24 18:16 IMPRESSION: Limited examination without sonographic evidence of deep venous thrombosis. Laboratory Results WBC 19.19 10^3/uL (3.29-11.43) H 11/27/24 03:26 RBC 4.89 10^6/uL (3.85-5.65) 11/27/24 03:26 Hgb 14.60 g/dL (11.27-16.99) 11/27/24 03: Hct 44.2 % (37-53) 11/27/24 03: MCV 90.4 fl (82-101) 11/27/24 03: MCH 29.9 pg (27-33) 11/27/24 03: MCHC 33.0 g/dL (30-55) 11/27/24 03: RDW 14.5 % (12.1-15.1) 11/27/24 03: Plt Count 184 10^3/cmm (157-399) 11/27/24 03: MPV 9.7 fL (7.4-10.4) 11/27/24 03: Neut % (Auto) 87.8 % 11/27/24 03: Lymph % (Auto) 5.0 % 11/27/24 03: [place] % (Auto) 5.9 % 11/27/24 03: Eos % (Auto) 0.0 % 11/27/24 03: Baso % (Auto) 0.3 % 11/27/24 03: Neut # (Auto) 16.83 10^3/uL (1.8-7.7) H 11/27/24 03: Lymph # (Auto) 1.0 10^3/uL (0.8-4.8) 11/27/24 03: [place] # (Auto) 1.1 10^3/uL (0.2-0.9) H 11/27/24 03: Eos # (Auto) 0.0 10^3/uL (0.0-0.8) 11/27/24 03: Baso # (Auto) 0.1 10^3/uL (0.0-0.1) 11/27/24 03: Nucleated RBC % (auto) 0 % 11/27/24 03: Nucleated RBCs # 0.0 /100WBC 11/27/24 03: Specimen Type Arterial 11/26/24 17:04 Sample Site Brachial, right 11/26/24 17:04 ABG pH 7.49 (7.35-7.45) H 11/26/24 17:04 ABG pCO2 32.4 mmHg (35-45) L 11/26/24 17:04 ABG pO2 61.3 mmHg (80.0-100.0) L 11/26/24 17:04 ABG PO2/FiO2 Ratio 255 11/26/24 17:04 ABG HCO3 24.6 mmol/L (22-26) 11/26/24 17:04 ABG O2 Saturation 92.7 11/26/24 17:04 ABG Base Excess 2.0 mmol/L (-2.0-2.0) 11/26/24 17:04 José Test N/a 11/26/24 17:04 A-a O2 Gradient 9.0 mmHg (5-10) 11/26/24 17:04 Hematocrit 48.3 % (42-52) 11/26/24 17:04 Hgb O2 Saturation 91.0 % (95-100) L 11/26/24 17:04 Carboxyhemoglobin 1.1 %THgb (0.4-20.1) 11/26/24 17:04 Methemoglobin 0.8 % (0.4-1.5) 11/26/24 17:04 Total Hemoglobin 15.8 g/dL (14-18) 11/26/24 17:04 Sodium 135.0 mmol/L (131-143) 11/26/24 17:04 Potassium 3.8 mmol/L (3.5-5.0) 11/26/24 17:04 Glucose 129.0 mg/dL (70-115) H 11/26/24 17:04 Ionized Calcium 1.1 mmol/L (1.1-1.4) 11/26/24 17:04 O2 Delivery Device Nc 11/26/24 17:04 O2 Liters/Min 1.0 % 11/26/24 17:04 FiO2 24.0 % 11/26/24 17:04 Court Of Appeals Judge ID Amh 11/26/24 17:04 Sodium 137 mmol/L (136-145) 11/27/24 03:26 Potassium 3.6 mmol/L (3.5-5.1) 11/27/24 03:26 Chloride 102 mmol/L (98-107) 11/27/24 03:26 Carbon Dioxide 20 mmol/L (22-29) L 11/27/24 03:26 Anion Gap 18.6 (5-19) 11/27/24 03:26 BUN 25 mg/dL (6-20) H 11/27/24 03:26 Creatinine 1.5 mg/dL (0.7-1.2) H 11/27/24 03:26 GFR Calculation 50.6 mL/min (90-130) L 11/27/24 03:26 Glucose 117 mg/dL (65-115) H 11/27/24 03:26 Estimat Average Glucose 117 11/27/24 03:26 Hemoglobin A1c 5.7 % (4.0-6.0) 11/27/24 03:26 Calculated Osmolality 289 mOsm/kg (285-295) 11/27/24 03:26 Lactic Acid 1.5 mmol/L (0.5-2.2) 11/26/24 18:12 Calcium 8.6 mg/dL (8.5-10.5) 11/27/24 03:26 Magnesium 1.8 mg/dL (1.7-2.3) 11/27/24 03:26 Total Bilirubin 0.9 mg/dL (0.15-1.2) 11/26/24 18:12 AST 21 U/L (0-40) 11/26/24 18:12 ALT 23 U/L (0-41) 11/26/24 18:12 Alkaline Phosphatase 63 U/L (40-130) 11/26/24 18:12 Total Protein 7.6 g/dL (6.6-8.7) 11/26/24 18:12 Albumin 3.7 g/dL (3.5-5.2) 11/26/24 18:12 Globulin 3.9 g/dL (1.3-4.6) 11/26/24 18:12 Triglycerides 115 mg/dL (0-150) 11/27/24 03:26 Cholesterol 103 mg/dL (0-200) 11/27/24 03:26 LDL Cholesterol, Calc 56 mg/dL (50-129) 11/27/24 03: HDL Cholesterol 24 mg/dL (60-100) L 11/27/24 03: LDL/HDL Ratio 2.33 RATIO (0.00-3.22) 11/27/24 03: Cholesterol/HDL Ratio 4.29 mg/dL (1.0-5.00) 11/27/24 03:26 TSH 1.28 uIU/mL (0.27-4.20) 11/27/24 03:26 Influenza A (PCR) Negative (Negative) 11/26/24 19:50 Influenza Type B (PCR) Negative (Negative) 11/26/24 19:50 RSV (PCR) Negative (Negative) 11/26/24 19:50 SARS-CoV-2 (PCR) Negative (Negative) 11/26/24 19:50 All radiology interpretation(s) finalized by discharge Discharge Plan Discharge Patient Disposition: Admitted As Inpatient Admit Provider: Felix Selby Clinical Impression: Sepsis with acute renal failure without septic shock, due to unspecified organism, unspecified acute renal failure type, Cellulitis of left lower extremity, Obesity Condition: Stable Coding Level of Care Code ED Denitrator for Daly Godfrey
[2024-11-26 17:16] LABS: ABG PCO2 32.4 mmHg (35-45); ABG PH Result 7.49 (7.35-7.45); Alveolar-Arterial Oxygen Gradi 9.0 mmHg (5-10); Arterial Blood Gas Hematocrit 48.3 % (42-52); Blood Gas LPM 1.0 %; Blood Gas Operator Identificat AMH; Blood Gas Sample Site Brachial, right; Blood Gas Sample Type Arterial; Carboxyhemoglobin 1.1 %THgb (0.4-20.1); Glucose Level-ABG 129.0 mg/dL (70-115); HCO3 ABG 24.6 mmol/L (22-26); Ionized Calcium Level - ABG 1.1 mmol/L (1.1-1.4); Methemoglobin 0.8 % (0.4-1.5); Oxygen Saturation ABG 92.7; PO2 ABG 61.3 mmHg (80.0-100.0); PO2 FiO2 Ratio Arterial Blood 255; Potassium Level - ABG 3.8 mmol/L (3.5-5.0); Sodium Level - ABG 135.0 mmol/L (131-143)
[2024-11-26 17:31] LABS: Hematocrit 47.9 % (37-53); Hemoglobin 15.50 g/dL (11.27-16.99); Mean Corpuscular HGB Conc 32.4 g/dL (30-55); Mean Corpuscular Hemoglobin 30.2 pg (27-33); Mean Corpuscular Volume 93.2 fl (82-101); Nucleated Red Blood Cells % 0 %; Platelet Count 227 10^3/cmm (157-399); Red Blood Count 5.14 10^6/uL (3.85-5.65); White Blood Count 23.70 10^3/uL (3.29-11.43)
--- NOTE | 2024-11-26 18:16 | USR_ITS ---
PROCEDURE INFORMATION: Exam: US Duplex Lower Extremity Veins, Bilateral Exam date and time: 11/26/2024 7:20 PM Age: 44 years old Clinical indication: Swelling (edema) of limb; Upper extremity, right; Additional info: Leg swelling TECHNIQUE: Imaging protocol: Real-time duplex ultrasound of the bilateral extremities with 2-D singer scale, color Doppler flow and spectral waveform analysis including responses to compression and other maneuvers (when performed) with image documentation. Complete exam focused on the lower extremity veins. COMPARISON: CT abdomen pelvis wo con [id number] 11/09/2021 3:25 AM FINDINGS: Right deep veins: Unremarkable. The common femoral, femoral, proximal profunda femoral and popliteal veins are patent without thrombus. Normal Doppler waveforms. Normal compressibility and/or augmentation response. Left deep veins: Suboptimal visualization of the common femoral, femoral, proximal profunda femoral and popliteal veins due to the patient's body habitus. The posterior tibial vein is patent without thrombus. Normal Doppler waveforms. Normal compressibility and/or augmentation response. Superficial veins: Greater saphenous veins at the saphenofemoral junctions are patent bilaterally without thrombus. Soft tissues: Unremarkable. US/CV venous duplex [facility] [id number] IMPRESSION: Limited examination without sonographic evidence of deep venous thrombosis.
[2024-11-26 18:48] LABS: Alanine Aminotransferase 23 U/L (0-41); Albumin Level 3.7 g/dL (3.5-5.2); Alkaline Phosphatase 63 U/L (40-130); Anion Gap 15.9 (5-19); Aspartate Amino Transferase 21 U/L (0-40); Blood Urea Nitrogen 24 mg/dL (6-20); Calcium 8.9 mg/dL (8.5-10.5); Carbon Dioxide 22 mmol/L (22-29); Chloride 101 mmol/L (98-107); Globulin 3.9 g/dL (1.3-4.6); Glucose 125 mg/dL (65-115); Lactic Sepsis W/Reflex 1.5 mmol/L (0.5-2.2); Osmolality Calculated 286 mOsm/kg (285-295); Potassium 3.9 mmol/L (3.5-5.1); Sodium 135 mmol/L (136-145); Total Protein 7.6 g/dL (6.6-8.7)
[2024-11-26 18:52] LABS: Creatinine Clr Calc Pharmacy 127.5971
--- NOTE | 2024-11-26 19:04 | PM.HP ---
Providers/Chief Complaint Primary Care Provider: Berniec Buchanan MD Chief Complaint: R leg swollen can't stay awake History of Present Illness Vern Gallo is a 44 year old male with a past medical history of obesity hypertension presents with a 1 to 2-day history of leg edema warmth. He states that his kitten scratched him in the medial aspect of left lower leg above the ankle. Subsequently it started to swell and turn red over the next couple days. It became painful. In the emergency room he is tachycardic febrile at 103.2 respirations of 30. This is clinically sepsis. He is started on IV antibiotics for cellulitis and will be admitted Review of Systems Const: Reports: fever(s) and chills Eyes: Denies: change in vision ENMT: Denies: throat pain or nasal congestion Card: Denies: chest pain or palpitations Resp: Denies: dyspnea or productive cough GI: Denies: abdominal pain, nausea, vomiting or change in stool character : Denies: difficulty urinating or dysuria Musc: Reports: extremity pain and extremity swelling; Denies: back pain Skin/Breast: Denies: rash or lesions Neuro: Denies: headache(s) or dizziness Psych: Denies: anxiety or depression Quirino/Lymph: Denies: easy bruising or easy bleeding Medications/Allergies Home Medications ?Medication ?Instructions ?Recorded ?Confirmed ?Last Taken ?Type ondansetron 8 mg disintegrating 8 mg PO Q8H PRN nausea and 03/30/24 04/29/24 Unknown Rx tablet vomiting #10 tabs tramadol 50 mg tablet 50 mg PO Q8H PRN pain 3 days #10 04/06/24 04/29/24 04/29/24 Rx tabs sucralfate 100 mg/mL oral 10 ml PO BID 30 days #840 mL 04/09/24 04/29/24 04/29/24 Rx suspension lisinopril 20 mg tablet 20 mg PO DAILY 04/29/24 04/29/24 04/29/24 History omeprazole 40 mg capsule,delayed 40 mg PO BID 04/29/24 04/29/24 04/29/24 History release Allergies Allergy/AdvReac Type Severity Reaction Status Date / Time Penicillins Allergy Unknown Verified 04/29/24 08:58 PFSH Acute PFSH: Medical History Smoker Cardiomegaly Atherosclerosis Obesity Surgical History History of tonsillectomy and adenoidectomy History of laparoscopic adjustable gastric banding History of appendectomy Family History Mother Hypertension CAD (coronary artery disease) Brother Stroke CAD (coronary artery disease) ALS (amyotrophic lateral sclerosis) Social History Smoking and tobacco/nicotine status: current every day tobacco/nicotine user cigarettes Packs smoked per day: 0.5 Quit status (tobacco/nicotine): considering quitting Alcohol intake: current Alcohol intake frequency: holidays/special occasions only Substance/Drug Use: never Lives independently: Yes Household members: family Marital status: Number of children: 0 Current occupational status: employed Current occupation: [employer] Leisure activites: [employer] Special irena needs: No Agree to transfusion: Yes Vitals/I&O/Wt Last Vital Signs Temp 103.2 F H 11/26/24 16:45 Pulse 136 H 11/26/24 16:45 Resp 30 H 11/26/24 16:45 BP 140/75 11/26/24 16:45 Pulse Ox 92 11/26/24 16:45 O2 Del Method Room Air 11/26/24 16:45 Weight last 48 hrs Weight 235.868 kg Physical Exam Narrative: Superobesity. In moderate distress at time of exam. Patient with elevated respiratory rate and heart rate. Neuro alert and oriented to person place time and situation he has a nonfocal exam HEENT head is normal cephalic atraumatic pupils equal round reactive to light and accommodation extraocular muscles are intact nose no scleral icterus mucous membranes are DRY Neck is supple no JVD carotid bruits or lymphadenopathy Heart very distant heart sounds no loud murmur auscultated Lungs diminished breath sounds but clear Abdomen morbidly obese soft nontender normal active bowel sounds Extremities there is venous stasis changes in bilateral lower extremities up to knee. The left leg is warm to touch with erythema. There is punctate lesion in the medial aspect of his leg above the ankle where he states the cat scratched him. There is dried blood there. Psych mood and affect are appropriate for situation Back no significant kyphosis or scoliosis Skin no other lesions or rashes noted Data 11/26/24 17:16 11/26/24 18:12 Micro: Microbiology 11/26/24 17:05 Blood Culture - Preliminary Blood SPECIMEN COLLECTED 11/26/24 17:11 Blood Culture - Preliminary Blood SPECIMEN COLLECTED A&P Assessment and plan 1. Sepsis with acute renal failure without septic shock, due to unspecified organism, unspecified acute renal failure type: 2. Cellulitis of left lower extremity: 3. Morbid obesity with BMI of 70 and over, adult: 4. Obstructive sleep apnea on CPAP: 5. Hypertension: Plan: Patient to be admitted for cellulitis possible bacteremia. Await blood cultures. he was started on vancomycin. He will be given IV fluids for the renal failure. Pharmacy will dose vancomycin due to acute kidney injury.Patient will have family bring BiPAP from home for tonight. Follow-up labs in the a.m. PDMP PDMP Reviewed: Not Reviewed Attestations Medical Necessity Statement*: Patient is admitted to observation expected stay less than 2 midnights. Coding Level of Care Code Acute Code for [facility] Fwd Diagnoses Sepsis with acute renal failure without septic shock, due to unspecified organism, unspecified acute renal failure type A41.9; R65.20; N17.9 Sepsis type: sepsis due to unspecified organism Sepsis acute organ dysfunction status: with acute organ dysfunction Severe sepsis acute organ dysfunction type: acute renal failure Acute renal failure type: unspecified Severe sepsis shock status: without septic shock Cellulitis of left lower extremity L03.116 Morbid obesity with BMI of 70 and over, adult E66.01; Z68.45 Obstructive sleep apnea on CPAP G47.33 Hypertension I10
[2024-11-26 20:31] LABS: Respiratory Syncytial Virus Ce NEGATIVE (Negative); SARS-CoV-2 PCR NEGATIVE (Negative)
[2024-11-27] VITALS (8 sets, daily range): BP systolic 126–139; BP diastolic 69–85; PULSE 105–124; RESP 17–21; TEMP 36.8–37.6; O2SAT 93–96
[2024-11-27 03:48] LABS: Hematocrit 44.2 % (37-53); Hemoglobin 14.60 g/dL (11.27-16.99); Mean Corpuscular HGB Conc 33.0 g/dL (30-55); Mean Corpuscular Hemoglobin 29.9 pg (27-33); Mean Corpuscular Volume 90.4 fl (82-101); Nucleated Red Blood Cells % 0 %; Platelet Count 184 10^3/cmm (157-399); Red Blood Count 4.89 10^6/uL (3.85-5.65); White Blood Count 19.19 10^3/uL (3.29-11.43)
[2024-11-27 04:15] LABS: Cholesterol 103 mg/dL (0-200); HDL Cholesterol 24 mg/dL (60-100); Triglycerides 115 mg/dL (0-150)
[2024-11-27 04:19] LABS: Anion Gap 18.6 (5-19); Blood Urea Nitrogen 25 mg/dL (6-20); Calcium 8.6 mg/dL (8.5-10.5); Carbon Dioxide 20 mmol/L (22-29); Chloride 102 mmol/L (98-107); Glucose 117 mg/dL (65-115); Magnesium 1.8 mg/dL (1.7-2.3); Osmolality Calculated 289 mOsm/kg (285-295); Potassium 3.6 mmol/L (3.5-5.1); Sodium 137 mmol/L (136-145); Thyroid Stimulating Hormone 1.28 uIU/mL (0.27-4.20)
[2024-11-27 04:21] LABS: Estmated Average Glucose 117; Hemoglobin A1C 5.7 % (4.0-6.0)
[2024-11-27 04:39] LABS: Creatinine Clr Calc Pharmacy 124.0858
--- NOTE | 2024-11-27 11:27 | PHA.VACGOAL ---
Vancomycin Goal - Goal Vancomycin Goal:: 15-20 mg/L Vancomycin Indication:: Other (SEPSIS) - Therapy Current therapy:: Meropenem Day of therpy:: Day []of [] . Actual body weight (kg): 548 lb 4 oz - Data Labs: WBC 19.19 10^3/uL (3.29-11.43) H 11/27/24 03:26 RBC 4.89 10^6/uL (3.85-5.65) 11/27/24 03:26 Hgb 14.60 g/dL (11.27-16.99) 11/27/24 03:26 Hct 44.2 % (37-53) 11/27/24 03:26 MCV 90.4 fl (82-101) 11/27/24 03:26 MCH 29.9 pg (27-33) 11/27/24 03:26 MCHC 33.0 g/dL (30-55) 11/27/24 03:26 RDW 14.5 % (12.1-15.1) 11/27/24 03:26 Sodium 137 mmol/L (136-145) 11/27/24 03:26 Potassium 3.6 mmol/L (3.5-5.1) 11/27/24 03:26 Chloride 102 mmol/L (98-107) 11/27/24 03:26 Carbon Dioxide 20 mmol/L (22-29) L 11/27/24 03:26 Anion Gap 18.6 (5-19) 11/27/24 03:26 BUN 25 mg/dL (6-20) H 11/27/24 03:26 Creatinine 1.5 mg/dL (0.7-1.2) H 11/27/24 03:26 GFR Calculation 50.6 mL/min (90-130) L 11/27/24 03:26 Last dialysis session:: N/A Treatment plan:: new consult Regimen:: 1000 MG GIVEN IN ER ON 11/26/24 AT 1947. [id number] INPUT ON 11/27/24 AROUND 02/03. STARTED MAINTENANCE DOSE OF 1500 MG Q12H. WILL CONTINUE TO MONITOR DAILY AND DRAW TROUGH PRIOR TO 4TH DOSE. DUE TO PATIENT WEIGHT AND UNKNOWN FLUID STATUS, WILL DRAW EARLY LEVEL TO ENSURE PATIENT IS NOT SUPRATHERAPEUTIC.
--- NOTE | 2024-11-27 11:49 | PC.NURSE ---
Wallet and Clothing: Wallet and clothing taken home by family member.
--- NOTE | 2024-11-27 11:50 | PC.CHAP ---
Pastoral Care Encounter/Spiritual Assessment Type of Contact [] Declined windows support engineer visit [] Patient/Family/Request visit [] Outpatient visit [] Follow-up visit [] Physician referral [] Code/Alert [x] Routine visit [] Staff referral [] Actively dying [] Patient sleeping [] Family support [] [] Out of room [] Palliative care [] [] Receiving care in room [] Pre-surgical visit [] Trauma [] Long length of stay [] ICU visit [] Other: Relational/Emotional Strength [x] Patient feels connected with others/family/visitors/staff [] Distress [] Loneliness/isolation [] Abandonment Spirituality of Patient [] Person of Juju [] Attends Nondenominational of their Juju [x] Believes in Prayer [] Reads Bible or Spiritism materials [] There are Spiritual issues to be addressed Lead [place] Interventions [] Prayer [] Active listening [] Non-anxious presence [] Spiritual/emotional support [] Crisis/trauma care [] Spiritual counseling [] Bereavement support [] Provided bereavement packet [] Provided Bible/devotional materials [] Provided toy/stuffed animal, coloring book to patient or family member [] Provided Communion [] Anointing/[place] [] Salvation [] Completed spiritual assessment [] Other: Impact on Illness or Injury [] Angry [] Fearful [] Anxious [] Often cries [] Exhaustion [] Unable to work [] Unable to attend taoist [] Unable to walk/stand [] Unable to read [] Unable to drive [] Unable to eat/drink [] Unable to sleep [] Unable to be with family [] Patient intubated [] Other: Summary Time spent with patient
[2024-11-27] MEDS: meropenem 1,000 mg SDV 1000 MG IVP ×2 (11:53→20:02)
--- NOTE | 2024-11-27 12:55 | P.PN_ITS ---
Subjective 2 Subjective: Patient is breathing better. His aunt is in the room shares her concerns. All questions answered. Vitals/I&O/Wt Last Vital Signs Temp 99.6 F 11/27/24 11:15 Pulse 108 H 11/27/24 11:15 Resp 18 11/27/24 11:15 BP 128/76 11/27/24 11:15 Pulse Ox 95 11/27/24 11:15 O2 Del Method Nasal Cannula 11/27/24 11:15 O2 Flow Rate 2 11/27/24 11:15 11/26/24 11/27/24 11/27/24 22:59 06:59 14:59 Intake Total 250 / 250 1300 / 1550 240 / 240 Output Total 750 / 750 100 / 100 Balance 250 / 250 550 / 800 140 / 140 Weight last 48 hrs Weight 248.682 kg Weight 250.065 kg Weight 248.682 kg Weight 235.868 kg Physical Exam 2 Narrative: Superobesity. Heart very distant heart sounds no loud murmur auscultated Lungs diminished breath sounds but clear Abdomen morbidly obese soft nontender normal active bowel sounds Extremities there is venous stasis changes in bilateral lower extremities up to knee. The left leg has more erythema today. Remains warm to touch. The punctate lesion in the medial aspect of his leg above the ankle is clotted off. Data 11/27/24 03:26 11/27/24 03:26 Micro: Microbiology 11/26/24 17:05 Blood Culture - Preliminary Blood SPECIMEN COLLECTED 11/26/24 17:11 Blood Culture - Preliminary Blood SPECIMEN COLLECTED US: Radiologist's impression: MPRESSION: Limited examination without sonographic evidence of deep venous thrombosis. A&P Assessment and plan 1. Sepsis with acute renal failure without septic shock, due to unspecified organism, unspecified acute renal failure type: 2. Cellulitis of left lower extremity: 3. Morbid obesity with BMI of 70 and over, adult: 4. Obstructive sleep apnea on CPAP: 5. Hypertension: Plan: Patient received 1 dose of vancomycin and this will be continued. I will add Zosyn for coverage since his left leg looks worse. Kidneys are stable not improved. Will continue fluids Await cultures Changed to full admission since the leg looks worse than he may require IV antibiotics for a longer period of time PDMP PDMP Reviewed: Not Reviewed Attestations 2 Medical Necessity Statement*: Patient's care now expected to cross 2 midnights. His left lower extremity has worsening erythema and progression to the knee. I have intensified his antibiotic coverage. His renal function remains abnormal without improvement. Coding Level of Care Code Acute Code for Chg Fwd Diagnoses Sepsis with acute renal failure without septic shock, due to unspecified organism, unspecified acute renal failure type A41.9; R65.20; N17.9 Acute renal failure type: unspecified Sepsis acute organ dysfunction status: with acute organ dysfunction Sepsis type: sepsis due to unspecified organism Severe sepsis acute organ dysfunction type: acute renal failure Severe sepsis shock status: without septic shock Cellulitis of left lower extremity L03.116 Morbid obesity with BMI of 70 and over, adult E66.01; Z68.45 Obstructive sleep apnea on CPAP G47.33 Hypertension I10
[2024-11-28] VITALS (9 sets, daily range): BP systolic 120–167; BP diastolic 52–90; PULSE 90–111; RESP 19–26; TEMP 36.4–37.2; O2SAT 93–98
[2024-11-28] MEDS: meropenem 1,000 mg SDV 1000 MG IVP ×3 (03:30→21:24)
[2024-11-28 10:27] LABS: Hematocrit 40.9 % (37-53); Hemoglobin 13.30 g/dL (11.27-16.99); Mean Corpuscular HGB Conc 32.5 g/dL (30-55); Mean Corpuscular Hemoglobin 30.1 pg (27-33); Mean Corpuscular Volume 92.5 fl (82-101); Nucleated Red Blood Cells % 0 %; Platelet Count 153 10^3/cmm (157-399); Red Blood Count 4.42 10^6/uL (3.85-5.65); White Blood Count 10.06 10^3/uL (3.29-11.43)
[2024-11-28 10:47] LABS: Anion Gap 14.5 (5-19); Blood Urea Nitrogen 14 mg/dL (6-20); Calcium 8.0 mg/dL (8.5-10.5); Carbon Dioxide 21 mmol/L (22-29); Chloride 106 mmol/L (98-107); Creatinine Clr Calc Pharmacy 234.8156; Glucose 119 mg/dL (65-115); Osmolality Calculated 288 mOsm/kg (285-295); Potassium 3.5 mmol/L (3.5-5.1); Sodium 138 mmol/L (136-145)
--- NOTE | 2024-11-28 10:49 | P.PN_ITS ---
Subjective 2 Subjective: Patient feeling better today. No shortness of breath although still requiring oxygen supplementation. Patient has had bowel movement in the bed. It appears that he is having diarrhea. Vitals/I&O/Wt Last Vital Signs Temp 98.4 F 11/28/24 04:05 Pulse 100 11/28/24 08:00 Resp 19 H 11/28/24 08:00 BP 120/72 11/28/24 08:00 Pulse Ox 96 11/28/24 08:00 O2 Del Method Nasal Cannula 11/28/24 08:00 O2 Flow Rate 2 11/28/24 08:00 11/27/24 11/28/24 11/28/24 22:59 06:59 14:59 Intake Total 997.5 / 2537.5 1300 / 3837.5 480 / 480 Output Total 700 / 800 Balance 997.5 / 2437.5 600 / 3037.5 480 / 480 Weight last 48 hrs Weight 253.331 kg Weight 248.682 kg Weight 250.065 kg Weight 248.682 kg Weight 235.868 kg Physical Exam 2 Narrative: Superobesity. Heart very distant heart sounds no loud murmur auscultated Lungs diminished breath sounds anteriorly due to body habitus Abdomen morbidly obese soft nontender normal active bowel sounds Extremities there is venous stasis changes in bilateral lower extremities up to knee. The left leg is stable to improved today. There is slightly less erythema to this skin markings in the distal aspect. The coloration is turning more purple rather than erythematous. No significant warmth today. Data 11/28/24 10:07 11/28/24 10:07 Micro: Microbiology 11/26/24 17:05 Blood Culture - Preliminary Blood NEGATIVE TO DATE 11/26/24 17:11 Blood Culture - Preliminary Blood NEGATIVE TO DATE A&P Assessment and plan 1. Sepsis with acute renal failure without septic shock, due to unspecified organism, unspecified acute renal failure type: Blood cultures negative to date. Continue meropenem and vancomycin with improved results today. 2. Cellulitis of left lower extremity: As above 3. Morbid obesity with BMI of 70 and over, adult: Patient with previous gastric bypass; failed. 4. Obstructive sleep apnea on CPAP: Continue nightly CPAP 5. Hypertension: Plan: Patient's cellulitis is currently stable. While blood cultures are negative at this point patient did not respond to Zosyn alone. Would continue IV antibiotics for another 24 hours. Renal failure resolved with a BUN/creatinine of 14 and 0.8 today. DC planning anticipate another 24 hours of IV antibiotics and possibly home tomorrow on p.o. depending on improvement. PDMP PDMP Reviewed: Not Reviewed Attestations 2 Medical Necessity Statement*: Patient's care now expected to cross 2 midnights. Patient required broader coverage for cellulitis yesterday. It appears the cellulitis is improved based on WBC count, and clinically with afebrile. In my clinical opinion the patient requires another 24 hours of IV antibiotics to turn the corner and avoid rehospitalization Coding Level of Care Code Acute Code for [facility] Fwd Diagnoses Sepsis with acute renal failure without septic shock, due to unspecified organism, unspecified acute renal failure type A41.9; R65.20; N17.9 Acute renal failure type: unspecified Sepsis acute organ dysfunction status: with acute organ dysfunction Sepsis type: sepsis due to unspecified organism Severe sepsis acute organ dysfunction type: acute renal failure Severe sepsis shock status: without septic shock Cellulitis of left lower extremity L03.116 Morbid obesity with BMI of 70 and over, adult E66.01; Z68.45 Obstructive sleep apnea on CPAP G47.33 Hypertension I10
[2024-11-29] VITALS (8 sets, daily range): BP systolic 128–166; BP diastolic 76–94; PULSE 73–101; RESP 16–30; TEMP 36.1–36.6; O2SAT 91–100
[2024-11-29] MEDS: meropenem 1,000 mg SDV 1000 MG IVP (05:25)
[2024-11-29] MEDS: diphenhydrAMINE 50 mg/mL SDV 1mL 25 MG IVP ×2 (11:45→18:09)
[2024-11-29] MEDS: hydrocortisone 100 mg/2 mL SDV IVP (11:46)
[2024-11-29] MEDS: aztreonam 2,000 MG in sodium chloride 0.9% (plus) 100 ML 200 MG IV (14:36)
--- NOTE | 2024-11-29 19:35 | PM.PN ---
Subjective Subjective: patient was seen this morning when nurse reported hives over the left arm aat around 9: 30 am. Additional hives noted over left knee and left hand subsequnetly. Per review of MAR patient had received iv vancomycin at 2Am and then meropenem at 5: 30 am. He has a h/o allergy to PCN, though with unknonw reaction. Medications: Reviewed: Yes Vitals/I&O/Wt Last Vital Signs Temp 97.0 F L 11/29/24 17:05 Pulse 79 11/29/24 17:05 Resp 20 H 11/29/24 17:05 BP 150/94 11/29/24 17:05 Pulse Ox 98 11/29/24 17:05 O2 Del Method Nasal Cannula 11/29/24 17:05 O2 Flow Rate 3 11/29/24 12:02 11/29/24 11/29/24 11/29/24 06:59 14:59 22:59 Intake Total 1300 / 4800 1600 / 1600 580 / 2180 Output Total 300 / 300 Balance 1300 / 4475 1300 / 1300 580 / 1880 Weight last 48 hrs Weight 253.331 kg Physical Exam Narrative: General: No acute distress, AO x3 HEENT: PERRLA, pupils bilaterally equal and reactive, pallors not present Chest: Normal vesicular breath sounds, no added sounds, equal good air entry bilaterally CVS: S1-S2 regular, no murmurs, no tachycardia, no gallops, no rubs Abdomen: Soft, nontender, no organomegaly, bowel sounds present Neuro: No focal deficits, no facial deformity, AO x3, power 5/5 in all limbs Extremities: no improvement in cellulitis over left leg. Hives over left arm, left hand and right knee Data 11/28/24 10:07 11/28/24 10:07 A&P Assessment and plan 1. Sepsis with acute renal failure without septic shock, due to unspecified organism, unspecified acute renal failure type: Blood cultures negative to date. Continue meropenem and vancomycin with improved results today. 2. Cellulitis of left lower extremity: As above 3. Morbid obesity with BMI of 70 and over, adult: Patient with previous gastric bypass; failed. 4. Obstructive sleep apnea on CPAP: Continue nightly CPAP 5. Hypertension: 6. Allergic reaction: Plan: Patient's cellulitis is currently stable. While blood cultures are negative at this point patient did not respond to Zosyn alone. Would continue IV antibiotics for another 24 hours. Renal failure resolved with a BUN/creatinine of 14 and 0.8 today. DC planning anticipate another 24 hours of IV antibiotics and possibly home tomorrow on p.o. depending on improvement. 11/29/24 : Ck has developed hives today, suspected srug allergy. Received iv benadryl, hydrocortisone with improvement. rash may be related to beta lactam meropenem given h/o allergy to PCN in the past though unknonw reaction. Alternatively, may be related to vancomycin use. Of the two, will d/c meropenem today and switch to aztreonam. If rash re appears after discontinuing meropenem may be related to iv vancomycin alternately in which case we will switch this coverage. cellulitis persists, patient reports no significant change, streaking to left popliteal fossa today. PDMP PDMP Reviewed: Not Reviewed Attestations Medical Necessity Statement*: continued cellulitis, need for iv abx, allergic reaction today Coding Level of Care Code Acute Code for [facility] Fwd Diagnoses Sepsis with acute renal failure without septic shock, due to unspecified organism, unspecified acute renal failure type A41.9; R65.20; N17.9 Sepsis type: sepsis due to unspecified organism Sepsis acute organ dysfunction status: with acute organ dysfunction Severe sepsis acute organ dysfunction type: acute renal failure Acute renal failure type: unspecified Severe sepsis shock status: without septic shock Cellulitis of left lower extremity L03.116 Morbid obesity with BMI of 70 and over, adult E66.01; Z68.45 Obstructive sleep apnea on CPAP G47.33 Hypertension I10 Allergic reaction T78.40XA
[2024-11-30] VITALS (9 sets, daily range): BP systolic 144–167; BP diastolic 83–108; PULSE 78–107; RESP 16–24; TEMP 36.4–36.8; O2SAT 94–97
[2024-11-30] MEDS: aztreonam 2,000 MG in sodium chloride 0.9% (plus) 100 ML 200 MG IV ×2 (02:01→13:07)
--- NOTE | 2024-11-30 03:11 | PC.NURSE ---
Rash still noted on left arm, knee, hand, right arm, but seems to be improving. Bruise noted on L upper arm and R upper arm where IV was attempted previously.
[2024-11-30 05:16] LABS: Hematocrit 40.9 % (37-53); Hemoglobin 12.90 g/dL (11.27-16.99); Mean Corpuscular HGB Conc 31.5 g/dL (30-55); Mean Corpuscular Hemoglobin 29.4 pg (27-33); Mean Corpuscular Volume 93.2 fl (82-101); Nucleated Red Blood Cells % 0 %; Platelet Count 171 10^3/cmm (157-399); Red Blood Count 4.39 10^6/uL (3.85-5.65); White Blood Count 10.76 10^3/uL (3.29-11.43)
[2024-11-30 05:38] LABS: Alanine Aminotransferase 53 U/L (0-41); Albumin Level 3.4 g/dL (3.5-5.2); Alkaline Phosphatase 59 U/L (40-130); Anion Gap 17.6 (5-19); Aspartate Amino Transferase 47 U/L (0-40); Blood Urea Nitrogen 14 mg/dL (6-20); Calcium 8.5 mg/dL (8.5-10.5); Carbon Dioxide 22 mmol/L (22-29); Chloride 105 mmol/L (98-107); Creatinine Clr Calc Pharmacy 234.8156; Globulin 3.4 g/dL (1.3-4.6); Glucose 122 mg/dL (65-115); Osmolality Calculated 294 mOsm/kg (285-295); Potassium 3.6 mmol/L (3.5-5.1); Sodium 141 mmol/L (136-145); Total Protein 6.8 g/dL (6.6-8.7)
--- NOTE | 2024-11-30 15:56 | USR_ITS ---
PROCEDURE INFORMATION: Exam: US Left Limited Joint or Other Non-Vascular Extremity Structure Exam date and time: 11/30/2024 5:37 PM Age: 44 years old Clinical indication: Other: Ulcer; Additional info: Left leg to assess for abscess TECHNIQUE: Imaging protocol: US left limited joint or other nonvascular extremity structure. Real-time ultrasound with image documentation. Exam focused on the area of clinical interest. COMPARISON: [place] [id number] 11/26/2024 7:20 PM FINDINGS: Soft tissues: Ultrasound area of the ulcer and soft tissue swelling superior to the medial malleolus left lower extremity performed. Varicosities in this area. Edema in subcutaneous fat. Probable cellulitis underlying skin. No demonstrable abscess US/US soft tissue/extremity [id number] IMPRESSION: Findings consistent with cellulitis and edema. No demonstrable abscess
--- NOTE | 2024-11-30 16:22 | P.PN_ITS ---
Subjective 2 Subjective: Patient developed a rash, again appearing as hives shortly after vancomycin infusion. With this suspect that his hives yesterday morning may have been related to vancomycin rather than meropenem. Vancomycin was switched to oral linezolid. Will challenge meropenem again today. Cellulitis overall stable. Not progressing any further. Medications: Reviewed: Yes Vitals/I&O/Wt Last Vital Signs Temp 98.3 F 11/30/24 15:46 Pulse 102 H 11/30/24 15:46 Resp 18 11/30/24 15:46 BP 144/90 11/30/24 15:46 Pulse Ox 95 11/30/24 15:46 O2 Del Method Nasal Cannula 11/30/24 15:46 O2 Flow Rate 1 11/30/24 08:00 11/30/24 11/30/24 11/30/24 06:59 14:59 22:59 Intake Total 100 / 2520 580 / 580 Balance 100 / 2220 580 / 580 Physical Exam 2 Narrative: General: No acute distress, AO x3 HEENT: PERRLA, pupils bilaterally equal and reactive, pallors not present Chest: Normal vesicular breath sounds, no added sounds, equal good air entry bilaterally CVS: S1-S2 regular, no murmurs, no tachycardia, no gallops, no rubs Abdomen: Soft, nontender, no organomegaly, bowel sounds present Neuro: No focal deficits, no facial deformity, AO x3, power 5/5 in all limbs Extremities: no improvement in cellulitis over left leg. Hives over left arm, left hand and right knee Data 11/30/24 04:13 11/30/24 04:13 A&P Assessment and plan 1. Sepsis with acute renal failure without septic shock, due to unspecified organism, unspecified acute renal failure type: Blood cultures negative to date. Continue meropenem and vancomycin with improved results today. 2. Cellulitis of left lower extremity: As above 3. Morbid obesity with BMI of 70 and over, adult: Patient with previous gastric bypass; failed. 4. Obstructive sleep apnea on CPAP: Continue nightly CPAP 5. Hypertension: 6. Allergic reaction: Plan: Patient's cellulitis is currently stable. While blood cultures are negative at this point patient did not respond to Zosyn alone. Would continue IV antibiotics for another 24 hours. Renal failure resolved with a BUN/creatinine of 14 and 0.8 today. DC planning anticipate another 24 hours of IV antibiotics and possibly home tomorrow on p.o. depending on improvement. 11/29/24 : Ck has developed hives today, suspected srug allergy. Received iv benadryl, hydrocortisone with improvement. rash may be related to beta lactam meropenem given h/o allergy to PCN in the past though unknonw reaction. Alternatively, may be related to vancomycin use. Of the two, will d/c meropenem today and switch to aztreonam. If rash re appears after discontinuing meropenem may be related to iv vancomycin alternately in which case we will switch this coverage. cellulitis persists, patient reports no significant change, streaking to left popliteal fossa today. November 30, 2024 Cellulitis appears to have stabilized. Deep red to purple color changes appreciated. No further streaking. Yesterday he developed hives after vancomycin infusion, therefore now suspect that reaction may have been from vancomycin rather than meropenem. Vancomycin discontinued, changed to oral linezolid 600 mg every 12 hours. Trial meropenem again and assess for any adverse reactions. It would be important to see if he is truly allergic to beta-lactam's as at discharge I anticipate transitioning him to oral beta-lactam's. As needed hydrocortisone and Benadryl has been ordered in case he develops a severe reaction. Closely monitor today with this change. Azithromycin 500 mg daily was additionally added for Potential cat scratch disease given slow improvement. A small open wound has appeared on the medial aspect of his left leg just above the medial malleolus. Minimal crusting is noted, no obvious discharge at this time. This may have been the site of the original cat scratch. Will obtain ultrasound of the soft tissue to assess for any underlying abscess. Ideally would have preferred to perform a CAT scan, however patient weighs over 400 pounds and will be unable to fit in our CAT scan machine. Continue CPAP at nighttime for obesity hypoventilation syndrome. Current daytime requirement of supplemental O2 at 1 L/min. PDMP PDMP Reviewed: Not Reviewed Attestations 2 Medical Necessity Statement*: Continued need for IV antibiotics. Trial of beta-lactam's again today with close monitoring for development of any hives. Coding Level of Care Code Acute Code for Chg Fwd High MDM includes number and complexity of problems actively addressed during encounter, amount and/or complexity of data reviewed/ordered and described risk of complication, morbidity or mortality of management as documented Diagnoses Sepsis with acute renal failure without septic shock, due to unspecified organism, unspecified acute renal failure type A41.9; R65.20; N17.9 Sepsis type: sepsis due to unspecified organism Sepsis acute organ dysfunction status: with acute organ dysfunction Severe sepsis acute organ dysfunction type: acute renal failure Acute renal failure type: unspecified Severe sepsis shock status: without septic shock Cellulitis of left lower extremity L03.116 Morbid obesity with BMI of 70 and over, adult E66.01; Z68.45 Obstructive sleep apnea on CPAP G47.33 Hypertension I10 Allergic reaction T78.40XA
[2024-11-30] MEDS: FUROsemide 10 mg/mL SDV 4mL 40 MG IVP (16:43)
--- NOTE | 2024-11-30 18:39 | PC.NURSE ---
This nurse notices that Pt's telemetry HR 160s. Pt went into the pt's room found him walking back from the BR without his oxygen. Pt placed back on oxygen and HR quickly came down to 100bpm. BP 167/90, Sats 96 percent on 1 liter. Attempted to call Dr. Villanueva, no answer. Text sent. Pt provided with long 20ft. tubing for trips to the Br.
[2024-11-30] MEDS: diphenhydrAMINE 50 mg/mL SDV 1mL 25 MG IVP (21:51)
[2024-11-30] MEDS: meropenem 1,000 mg SDV 1000 MG IVP (21:51)
[2024-12-01] VITALS (13 sets, daily range): BP systolic 119–159; BP diastolic 77–106; PULSE 80–97; RESP 18–23; TEMP 36.3–36.8; O2SAT 88–97
--- NOTE | 2024-12-01 02:48 | PC.NURSE ---
Patient found dripping sweat, checked blood sugar and it was 190, checked temperature and it was 97.9. Patient states he normally sleeps with a fan on him and just feels hot.
[2024-12-01] MEDS: meropenem 1,000 mg SDV 1000 MG IVP (05:09)
[2024-12-01 06:26] LABS: Glucose Urine UA Negative (Normal); Nitrate Urine Negative (Negative); Specific Gravity, Urine 1.027 (1.005-1.030)
[2024-12-01 06:31] LABS: Add Urine Microscopic? YES
--- NOTE | 2024-12-01 10:50 | CT_ITS ---
WS: [id number] CT CHEST ANGIOGRAPHY WITH REFORMATS HISTORY: evalute for PE TECHNIQUE: Contiguous axial images are obtained through the chest during arterial injection of intravenous contrast. Images are reconstructed to evaluate the pulmonary arteries. MIP imaging also reviewed. All CT scans at [facility] use at least one of these dose optimization techniques: automated exposure control; mA and/or kV adjustment per patient size (includes targeted exams where dose is matched to clinical indication); or iterative reconstruction. CONTRAST: Omnipaque 350; 100 mL IV. DLP: 602.36 mGy.cm COMPARISON: None available. Extremely limited, nearly nondiagnostic evaluation of the pulmonary arteries due to body habitus and beam hardening artifact. Good opacification of the pulmonary arteries but the extent of beam hardening artifact is obscuring the pulmonary arteries. Emboli would be difficult to exclude. No RIGHT heart strain. Portions of the thoracic aorta visualized are normal. No pneumonia. Limited visualization of the upper abdomen. Variable density in the upper pole LEFT kidney is probably artifact. CT/CT angio chest PE protcl [id number] IMPRESSION: Nondiagnostic evaluation of the pulmonary arteries. It would be difficult to ex clude pulmonary embolism on this exam. No RIGHT heart strain. No pneumonia.
[2024-12-01] MEDS: iohexol 350 mg/mL 500 mL Btl (per mL) IV (12:30)
[2024-12-01] MEDS: morphine 4 mg/mL SDV 1 mL IVP ×2 (14:22→22:56)
--- NOTE | 2024-12-01 18:57 | P.PN_ITS ---
Subjective 2 Subjective: Last evening patient became very short of breath with minimal exertion and heart rate went up to 180/min. Went back to sinus rhythm at 90 bpm after resting in chair. Remains on 1 L/min supplemental O2 but complains of increased shortness of breath with walking. D-dimer screen was obtained which resulted at 1.35. Underwent CTA of the chest subsequently which was negative for any PE. Cellulitis overall remained stable however he has developed new blistering over the left lateral aspect. Medications: Reviewed: Yes Vitals/I&O/Wt Last Vital Signs Temp 98.1 F 12/01/24 15:21 Pulse 88 12/01/24 15:21 Resp 21 H 12/01/24 15:21 BP 126/77 12/01/24 15:21 Pulse Ox 97 12/01/24 15:21 O2 Del Method Nasal Cannula 12/01/24 15:21 O2 Flow Rate 2 12/01/24 11:13 12/01/24 12/01/24 12/01/24 06:59 14:59 22:59 Intake Total 250 / 860 480 / 480 120 / 600 Output Total 0 / 0 Balance 250 / 860 480 / 480 120 / 600 Weight last 48 hrs Weight 253.331 kg Physical Exam 2 Narrative: General: No acute distress, AO x3 HEENT: PERRLA, pupils bilaterally equal and reactive, pallors not present Chest: Normal vesicular breath sounds, no added sounds, equal good air entry bilaterally CVS: S1-S2 regular, no murmurs, no tachycardia, no gallops, no rubs Abdomen: Soft, nontender, no organomegaly, bowel sounds present Neuro: No focal deficits, no facial deformity, AO x3, power 5/5 in all limbs Extremities: Cellulitis over left lower extremity. New blistering developing over the left lateral aspect. Data 11/30/24 04:13 11/30/24 04:13 Micro: Microbiology 11/26/24 17:05 Blood Culture - Final Blood NO GROWTH AFTER 5 DAYS 11/26/24 17:11 Blood Culture - Final Blood NO GROWTH AFTER 5 DAYS A&P Assessment and plan 1. Sepsis with acute renal failure without septic shock, due to unspecified organism, unspecified acute renal failure type: Blood cultures negative to date. Continue meropenem and vancomycin with improved results today. 2. Cellulitis of left lower extremity: As above 3. Morbid obesity with BMI of 70 and over, adult: Patient with previous gastric bypass; failed. 4. Obstructive sleep apnea on CPAP: Continue nightly CPAP 5. Hypertension: 6. Allergic reaction: Plan: Patient's cellulitis is currently stable. While blood cultures are negative at this point patient did not respond to Zosyn alone. Would continue IV antibiotics for another 24 hours. Renal failure resolved with a BUN/creatinine of 14 and 0.8 today. DC planning anticipate another 24 hours of IV antibiotics and possibly home tomorrow on p.o. depending on improvement. 11/29/24 : Ck has developed hives today, suspected srug allergy. Received iv benadryl, hydrocortisone with improvement. rash may be related to beta lactam meropenem given h/o allergy to PCN in the past though unknonw reaction. Alternatively, may be related to vancomycin use. Of the two, will d/c meropenem today and switch to aztreonam. If rash re appears after discontinuing meropenem may be related to iv vancomycin alternately in which case we will switch this coverage. cellulitis persists, patient reports no significant change, streaking to left popliteal fossa today. November 30, 2024 Cellulitis appears to have stabilized. Deep red to purple color changes appreciated. No further streaking. Yesterday he developed hives after vancomycin infusion, therefore now suspect that reaction may have been from vancomycin rather than meropenem. Vancomycin discontinued, changed to oral linezolid 600 mg every 12 hours. Trial meropenem again and assess for any adverse reactions. It would be important to see if he is truly allergic to beta-lactam's as at discharge I anticipate transitioning him to oral beta-lactam's. As needed hydrocortisone and Benadryl has been ordered in case he develops a severe reaction. Closely monitor today with this change. Azithromycin 500 mg daily was additionally added for Potential cat scratch disease given slow improvement. A small open wound has appeared on the medial aspect of his left leg just above the medial malleolus. Minimal crusting is noted, no obvious discharge at this time. This may have been the site of the original cat scratch. Will obtain ultrasound of the soft tissue to assess for any underlying abscess. Ideally would have preferred to perform a CAT scan, however patient weighs over 400 pounds and will be unable to fit in our CAT scan machine. Continue CPAP at nighttime for obesity hypoventilation syndrome. Current daytime requirement of supplemental O2 at 1 L/min. December 01, 2024 Overall area of cellulitis remained stable, however he has developed new blistering over the lateral aspect. Suspect that this is related to changing swelling and easy skin shearing as a result. In part patient swelling is contributed by being in a recliner all day and lower extremities remaining dependent as a result. Blood pressure noted to be systolic between 150-160, started on amlodipine 5 mg p.o. daily. He did not have any adverse reaction with starting meropenem. Will transition patient to oral cefdinir, azithromycin and linezolid today. If cellulitis remains stable over the next 24 hours with transition to oral antibiotics, will likely be able to discharge on this regimen. Closely monitor the new blistering that is encountered over the left lateral aspect of the foot. Last evening patient had sinus tachycardia with heart rate going up to 180 with minimal exertion. CTA of the chest was performed after confirming with radiology that the patient will be able to fit in our scanner. This study was negative for PE. Will trial Lasix 40 mg IV today and then attempt to minimize edema around the lower extremities. PDMP PDMP Reviewed: Not Reviewed Attestations 2 Medical Necessity Statement*: Transition from IV to oral antibiotics and assess for any worsening. Trial of transition while patient remains in the hospital as he has had hives with previous antibiotic changes. Coding Level of Care Code Acute Code for Chg Fwd Diagnoses Sepsis with acute renal failure without septic shock, due to unspecified organism, unspecified acute renal failure type A41.9; R65.20; N17.9 Sepsis type: sepsis due to unspecified organism Sepsis acute organ dysfunction status: with acute organ dysfunction Severe sepsis acute organ dysfunction type: acute renal failure Acute renal failure type: unspecified Severe sepsis shock status: without septic shock Cellulitis of left lower extremity L03.116 Morbid obesity with BMI of 70 and over, adult E66.01; Z68.45 Obstructive sleep apnea on CPAP G47.33 Hypertension I10 Allergic reaction T78.40XA
[2024-12-02] VITALS (10 sets, daily range): BP systolic 138–167; BP diastolic 72–95; PULSE 81–102; RESP 17–19; TEMP 36.4–37.4; O2SAT 92–100
[2024-12-02] MEDS: morphine 4 mg/mL SDV 1 mL IVP ×2 (06:07→23:51)
--- NOTE | 2024-12-02 13:02 | CTR_ITS ---
PROCEDURE INFORMATION: Exam: CT Left Lower Extremity Without Contrast, Leg Exam date and time: 12/02/2024 11:32 PM Age: 44 years old Clinical indication: Cellulitis and edema; Location not specified; Lower leg; Left; Additional info: Persiting cellulitis, persisting to worsening cellulitis day 6, assess for TECHNIQUE: Imaging protocol: CT of the left lower extremity without contrast was performed. Exam focused on the lower leg. Radiation optimization: All CT scans at this facility use at least one of these dose optimization techniques: automated exposure control; mA and/or kV adjustment per patient size (includes targeted exams where dose is matched to clinical indication); or iterative reconstruction. COMPARISON: CR XR tibia fibula LT 2V [id number] 02/15/2019 3:09 PM RADIATION DOSE METRICS: Total DLP (mGy-cm): 906.71 FINDINGS: Bones/joints: See Soft tissues finding. Soft tissues: Extensive soft tissue thickening and subcutaneous fat stranding throughout the imaged lower extremity, most prominent in the lower leg and ankle. Extensive fatty atrophy of the musculature. Partially imaged [id number] osteoarthritis of the knee. Degenerative changes of the ankle and midfoot are noted. No acute osseous abnormality. No evidence of osseous erosion to suggest osteomyelitis. Vasculature: Extensive soft tissue calcification in the lower leg, which may represent phleboliths or sequela of chronic venous stasis. Other findings: No drainable abscess CT/CT lower leg LT wo con* [id number] IMPRESSION: 1. Diffuse soft tissue edema corresponding with clinically provided history of cellulitis. No drainable abscess. 2. Diffuse soft tissue calcification, which may represent sequela of chronic venous stasis. 3. Arthritis of the knee, ankle, and midfoot.
--- NOTE | 2024-12-02 13:18 | P.PN_ITS ---
Subjective 2 Subjective: Developed increased erythema and blistering now also visible over the posterior aspect of affected leg Medications: Reviewed: Yes Vitals/I&O/Wt Last Vital Signs Temp 98.0 F 12/02/24 11:20 Pulse 90 12/02/24 11:20 Resp 18 12/02/24 11:20 BP 167/95 12/02/24 11:20 Pulse Ox 98 12/02/24 11:20 O2 Del Method Room Air 12/02/24 11:20 O2 Flow Rate 2 12/02/24 07:42 12/01/24 12/02/24 12/02/24 22:59 06:59 14:59 Intake Total 120 / 600 236 / 236 Balance 120 / 600 236 / 236 Weight last 48 hrs Weight 253.331 kg Physical Exam 2 Narrative: General: No acute distress, AO x3 HEENT: PERRLA, pupils bilaterally equal and reactive, pallors not present Chest: Normal vesicular breath sounds, no added sounds, equal good air entry bilaterally CVS: S1-S2 regular, no murmurs, no tachycardia, no gallops, no rubs Abdomen: Soft, nontender, no organomegaly, bowel sounds present Neuro: No focal deficits, no facial deformity, AO x3, power 5/5 in all limbs Extremities: Cellulitis over left lower extremity. New blistering developing over the left lateral aspect. Changes now extending to the back of the leg with blistering. Data 11/30/24 04:13 11/30/24 04:13 Micro: Microbiology 11/26/24 17:05 Blood Culture - Final Blood NO GROWTH AFTER 5 DAYS 11/26/24 17:11 Blood Culture - Final Blood NO GROWTH AFTER 5 DAYS A&P Assessment and plan 1. Sepsis with acute renal failure without septic shock, due to unspecified organism, unspecified acute renal failure type: Blood cultures negative to date. Continue meropenem and vancomycin with improved results today. 2. Cellulitis of left lower extremity: As above 3. Morbid obesity with BMI of 70 and over, adult: Patient with previous gastric bypass; failed. 4. Obstructive sleep apnea on CPAP: Continue nightly CPAP 5. Hypertension: 6. Allergic reaction: Plan: Patient's cellulitis is currently stable. While blood cultures are negative at this point patient did not respond to Zosyn alone. Would continue IV antibiotics for another 24 hours. Renal failure resolved with a BUN/creatinine of 14 and 0.8 today. DC planning anticipate another 24 hours of IV antibiotics and possibly home tomorrow on p.o. depending on improvement. 11/29/24 : Ck has developed hives today, suspected srug allergy. Received iv benadryl, hydrocortisone with improvement. rash may be related to beta lactam meropenem given h/o allergy to PCN in the past though unknonw reaction. Alternatively, may be related to vancomycin use. Of the two, will d/c meropenem today and switch to aztreonam. If rash re appears after discontinuing meropenem may be related to iv vancomycin alternately in which case we will switch this coverage. cellulitis persists, patient reports no significant change, streaking to left popliteal fossa today. November 30, 2024 Cellulitis appears to have stabilized. Deep red to purple color changes appreciated. No further streaking. Yesterday he developed hives after vancomycin infusion, therefore now suspect that reaction may have been from vancomycin rather than meropenem. Vancomycin discontinued, changed to oral linezolid 600 mg every 12 hours. Trial meropenem again and assess for any adverse reactions. It would be important to see if he is truly allergic to beta-lactam's as at discharge I anticipate transitioning him to oral beta-lactam's. As needed hydrocortisone and Benadryl has been ordered in case he develops a severe reaction. Closely monitor today with this change. Azithromycin 500 mg daily was additionally added for Potential cat scratch disease given slow improvement. A small open wound has appeared on the medial aspect of his left leg just above the medial malleolus. Minimal crusting is noted, no obvious discharge at this time. This may have been the site of the original cat scratch. Will obtain ultrasound of the soft tissue to assess for any underlying abscess. Ideally would have preferred to perform a CAT scan, however patient weighs over 400 pounds and will be unable to fit in our CAT scan machine. Continue CPAP at nighttime for obesity hypoventilation syndrome. Current daytime requirement of supplemental O2 at 1 L/min. December 01, 2024 Overall area of cellulitis remained stable, however he has developed new blistering over the lateral aspect. Suspect that this is related to changing swelling and easy skin shearing as a result. In part patient swelling is contributed by being in a recliner all day and lower extremities remaining dependent as a result. Blood pressure noted to be systolic between 150-160, started on amlodipine 5 mg p.o. daily. He did not have any adverse reaction with starting meropenem. Will transition patient to oral cefdinir, azithromycin and linezolid today. If cellulitis remains stable over the next 24 hours with transition to oral antibiotics, will likely be able to discharge on this regimen. Closely monitor the new blistering that is encountered over the left lateral aspect of the foot. Last evening patient had sinus tachycardia with heart rate going up to 180 with minimal exertion. CTA of the chest was performed after confirming with radiology that the patient will be able to fit in our scanner. This study was negative for PE. Will trial Lasix 40 mg IV today and then attempt to minimize edema around the lower extremities. December 02, 2024 Noted to have new erythema affecting the posterior aspect of his affected leg today. Some new blistering additionally encountered over the posterior aspect. He remains afebrile. Patient was changed to oral antibiotics yesterday in anticipation of discharge today, however given some worsening noted over the posterior aspect today, we will transition back to IV meropenem, oral linezolid and oral azithromycin. No cultures are available to guide empiric therapy, however given worsening off of pseudomonal coverage, will resume meropenem again. Additionally consult OT for lymphedema wraps. Elevate legs in recliner. Add Lasix 40 mg IV in an attempt to minimize lower extremity edema. Increase amlodipine to 10mg daily PDMP PDMP Reviewed: Not Reviewed Attestations 2 Medical Necessity Statement*: transition back to iv meropenem today and monitor for improvement Coding Level of Care Code Acute Code for Chg Fwd Diagnoses Sepsis with acute renal failure without septic shock, due to unspecified organism, unspecified acute renal failure type A41.9; R65.20; N17.9 Sepsis type: sepsis due to unspecified organism Sepsis acute organ dysfunction status: with acute organ dysfunction Severe sepsis acute organ dysfunction type: acute renal failure Acute renal failure type: unspecified Severe sepsis shock status: without septic shock Cellulitis of left lower extremity L03.116 Morbid obesity with BMI of 70 and over, adult E66.01; Z68.45 Obstructive sleep apnea on CPAP G47.33 Hypertension I10 Allergic reaction T78.40XA
[2024-12-02] MEDS: FUROsemide 10 mg/mL SDV 4mL 40 MG IVP (13:34)
[2024-12-02] MEDS: MEROPENEM 2,000 MG in sodium chloride 0.9% (plus) 50 ML 100 MG IV ×2 (13:34→20:36)
--- NOTE | 2024-12-02 14:34 | P.CONIM_ITS ---
Providers/Reason For Consult 2 Consulting Physician/Specialty*: General Surgery Reason for Consult*: Cellulitis of the left lower extremity Attending Physician: Vianca Villanueva MD Primary Care Provider: Bernice Buchanan MD History of Present Illness History of Present Illness Vern Gallo is a 44 year old male who presents to the hospital with aggressive cellulitis of the left lower extremity after a cat scratch. Patient has multiple comorbidities including an BMI of 84.9. He has been managed with antibiotics but over the last 24 hours blistering has appeared on the skin and therefore I was consulted for evaluation for possible need of de-yash or additional intervention. Review of Systems 2 General: Reports: 10 or more systems reviewed and unremarkable except in HPI and below Medications/Allergies Home Medications ?Medication ?Instructions ?Recorded ?Confirmed ?Last Taken ?Type No Known Home Medications 11/26/2411/15 Unknown History Allergies Allergy/AdvReac Type Severity Reaction Status Date / Time Penicillins Allergy ALGY-Hives Verified 12/02/24 12:43 vancomycin Allergy ALGY-Hives Verified 11/29/24 18:11 Current Medications Generic Name Dose Route Start Last Admin Trade Name Freq PRN Reason Stop Dose Admin Acetaminophen 650 mg 11/26/24 20:36 11/30/24 08:05 Acetaminophen 325 Mg Tablet PO 650 mg Q6H PRN Administration Mild/Mod Pain Or Temp >/= 101 Azithromycin 500 mg 11/30/24 09:00 12/02/24 09:12 Azithromycin 250 Mg Tablet PO 12/07/24 08:59 500 mg DAILY JOIE Administration Protocol Diphenhydramine HCl 25 mg 11/30/24 15:58 11/30/24 21:51 Diphenhydramine 50 Mg/Ml Sdv 1ml IVP 25 mg ONCE PRN Administration hives Docusate Sodium 100 mg 11/27/24 09:00 12/02/24 09:13 Docusate Sodium 100 Mg Capsule PO Not Given BID JOIE Enoxaparin Sodium 40 mg 11/26/24 20:36 12/01/24 19:48 Enoxaparin 40 Mg/0.4 Ml Syringe SUBCUT 40 mg Q24H JOIE Administration Furosemide 40 mg 12/02/24 13:00 12/02/24 13:34 Furosemide 10 Mg/Ml Sdv 4ml IVP 40 mg Q24H JOIE Administration Meropenem 2,000 mg/ Sodium 50 mls @ 100 mls/hr 12/02/24 13:00 12/02/24 13:34 Chloride IV 100 mls/hr Q8H JOIE Administration Protocol Ibuprofen 400 mg 11/26/24 20:36 12/01/24 13:20 Ibuprofen 200 Mg Tablet PO 400 mg Q6H PRN Administration Mild/Mod Pain Or Temp >/= 101 Linezolid 600 mg 11/29/24 19:45 12/02/24 09:14 Linezolid 600 Mg Tablet PO 600 mg Q12H JOIE Administration Protocol Morphine Sulfate 4 mg 12/01/24 14:13 12/02/24 06:07 Morphine 4 Mg/Ml Sdv 1 Ml IVP 4 mg Q6H PRN Administration SEVERE PAIN PFSH Acute 2 PFSH: Medical History (Updated 11/29/24 @ 19:38 by Vianca Villanueva MD) Smoker Cardiomegaly Atherosclerosis Obesity Surgical History History of tonsillectomy and adenoidectomy History of laparoscopic adjustable gastric banding History of appendectomy Family History Mother Hypertension CAD (coronary artery disease) Brother Stroke CAD (coronary artery disease) ALS (amyotrophic lateral sclerosis) Social History Smoking and tobacco/nicotine status: current every day tobacco/nicotine user cigarettes Packs smoked per day: 0.5 Quit status (tobacco/nicotine): considering quitting Alcohol intake: current Alcohol intake frequency: holidays/special occasions only Substance/Drug Use: never Lives independently: Yes Household members: family Marital status: Number of children: 0 Current occupational status: employed Current occupation: [employer] Leisure activites: [employer] Special Cisiv needs: No Agree to transfusion: Yes Vitals/I&O/Wt Last Vital Signs Temp 98.0 F 12/02/24 11:20 Pulse 90 12/02/24 11:20 Resp 18 12/02/24 11:20 BP 167/95 12/02/24 11:20 Pulse Ox 98 12/02/24 11:20 O2 Del Method Room Air 12/02/24 11:20 O2 Flow Rate 2 12/02/24 07:42 12/01/24 12/02/24 12/02/24 22:59 06:59 14:59 Intake Total 120 / 600 236 / 236 Balance 120 / 600 236 / 236 Weight last 48 hrs Weight 558 lb 8 oz Physical Exam 2 Extremity: NARRATIVE EXTREMITY EXAM: Patient has bilateral extremity edema, on the left lower extremity there is significant cellulitis of the leg below the knee all the way down to the ankle. There are multiple small blisters with serous fluid in the circumference of the leg. None of them appear to be hemorrhagic or infected at this time. Data 11/30/24 04:13 11/30/24 04:13 Micro: Microbiology 11/26/24 17:05 Blood Culture - Final Blood NO GROWTH AFTER 5 DAYS 11/26/24 17:11 Blood Culture - Final Blood NO GROWTH AFTER 5 DAYS A&P Assessment and plan 1. Obesity: 2. Morbid obesity with BMI of 70 and over, adult: 3. Cellulitis of left lower extremity: Plan: After complete history physical examination review of all available clinical data the following is my assessment. Patient has cellulitis of the left lower extremity in the setting of superobesity. At the moment there is no need for additional surgical intervention, I agree with antibiotic management for cellulitis, blisters do not need to be the rule for aspirated, once the cellulitis resolves then most likely will slough once new epithelium is created underneath. In the case of blisters becoming infected, or hemorrhagic I may decide to deroofed them. I have encouraged the patient to keep the leg elevated and have extended the wrapping from the immediate callus all the way up to the level of the knee to allow for better compression as patient has significant edema bilateral lower extremities. I will continue to follow on a daily basis while the patient is in house otherwise no intervention is indicated at this time PDMP PDMP Reviewed: Not Reviewed Coding Level of Care Code Acute Code for Chg Fwd Diagnoses Obesity E66.9 Morbid obesity with BMI of 70 and over, adult E66.01; Z68.45 Cellulitis of left lower extremity L03.116
[2024-12-03] VITALS (8 sets, daily range): BP systolic 129–173; BP diastolic 71–78; PULSE 86–101; RESP 15–19; TEMP 36.6–36.9; O2SAT 92–98
[2024-12-03 04:44] LABS: Hematocrit 37.8 % (37-53); Hemoglobin 12.30 g/dL (11.27-16.99); Mean Corpuscular HGB Conc 32.5 g/dL (30-55); Mean Corpuscular Hemoglobin 30.1 pg (27-33); Mean Corpuscular Volume 92.6 fl (82-101); Nucleated Red Blood Cells % 0 %; Platelet Count 335 10^3/cmm (157-399); Red Blood Count 4.08 10^6/uL (3.85-5.65); White Blood Count 12.28 10^3/uL (3.29-11.43)
[2024-12-03 05:19] LABS: Alanine Aminotransferase 38 U/L (0-41); Albumin Level 2.9 g/dL (3.5-5.2); Alkaline Phosphatase 83 U/L (40-130); Anion Gap 14.7 (5-19); Aspartate Amino Transferase 28 U/L (0-40); Blood Urea Nitrogen 11 mg/dL (6-20); Calcium 8.5 mg/dL (8.5-10.5); Carbon Dioxide 26 mmol/L (22-29); Chloride 103 mmol/L (98-107); Creatinine Clr Calc Pharmacy 375.7049; Globulin 3.9 g/dL (1.3-4.6); Glucose 106 mg/dL (65-115); Osmolality Calculated 290 mOsm/kg (285-295); Potassium 3.7 mmol/L (3.5-5.1); Sodium 140 mmol/L (136-145); Total Protein 6.8 g/dL (6.6-8.7)
[2024-12-03] MEDS: MEROPENEM 2,000 MG in sodium chloride 0.9% (plus) 50 ML 100 MG IV ×2 (05:51→12:13)
--- NOTE | 2024-12-03 09:16 | P.PN_ITS ---
Subjective 2 Subjective: 44-year-old male admitted with celluliti s of the left lower extremity. She is doing okay cellulitis appears to stable no significant clinical changes. Vitals/I&O/Wt Last Vital Signs Temp 98.5 F 12/03/24 07:21 Pulse 86 12/03/24 07:21 Resp 17 12/03/24 07:21 BP 146/73 12/03/24 07:21 Pulse Ox 96 12/03/24 07:21 O2 Del Method Nasal Cannula 12/03/24 07:21 O2 Flow Rate 2 12/03/24 07:21 12/02/24 12/03/24 12/03/24 22:59 06:59 14:59 Intake Total 218 / 454 770 / 1224 240 / 240 Balance 218 / 454 770 / 1224 240 / 240 Weight last 48 hrs Weight 557 lb Physical Exam 2 Extremity: NARRATIVE EXTREMITY EXAM: Left lower extremity stable cellulitis, blisters have been unchanged, I fully unwrapped the leg there is improvement on the area that was tightly wrapped from the mid calf down with decrease edema and improvement on the coloration of the skin. I agree wrapped the leg all the way up to the knee to provide better compression Data 12/03/24 04:21 12/03/24 04:21 A&P Assessment and plan 1. Cellulitis of left lower extremity: Plan: No surgical intervention indicated at this time. I recommend we continue compressive wrap to the level of the knee this seems to be helping progression. I have encouraged patient to ambulate today. I will continue to evaluate her wounds on a daily basis while the patient is in the hospital once he transitions to the outpatient setting he can follow-up with wound care clinic as needed. PDMP PDMP Reviewed: Not Reviewed Attestations 2 Medical Necessity Statement*: Per medical team Coding Level of Care Code Acute Code for Chg Fwd Diagnoses Cellulitis of left lower extremity L03.116
[2024-12-03] MEDS: FUROsemide 10 mg/mL SDV 4mL 40 MG IVP (12:13)
[2024-12-03] MEDS: MEROPENEM 2,000 MG in sodium chloride 0.9% (plus) 50 ML 200 MG IV (20:21)
--- NOTE | 2024-12-03 21:57 | P.PN_ITS ---
Subjective 2 Subjective: Cellulitis is overall stable. Leukocytosis increased to 12.2. Tmax of 99.5. Medications: Reviewed: Yes Vitals/I&O/Wt Last Vital Signs Temp 97.8 F 12/03/24 21:00 Pulse 93 12/03/24 21:00 Resp 19 H 12/03/24 21:00 BP 147/78 12/03/24 21:00 Pulse Ox 97 12/03/24 21:00 O2 Del Method Nasal Cannula 12/03/24 16:10 O2 Flow Rate 3 12/03/24 20:00 12/03/24 12/03/24 12/03/24 06:59 14:59 22:59 Intake Total 770 / 1224 530 / 530 120 / 650 Balance 770 / 1224 530 / 530 120 / 650 Weight last 48 hrs Weight 252.651 kg Physical Exam 2 Narrative: General: No acute distress, AO x3 HEENT: PERRLA, pupils bilaterally equal and reactive, pallors not present Chest: Normal vesicular breath sounds, no added sounds, equal good air entry bilaterally CVS: S1-S2 regular, no murmurs, no tachycardia, no gallops, no rubs Abdomen: Soft, nontender, no organomegaly, bowel sounds present Neuro: No focal deficits, no facial deformity, AO x3, power 5/5 in all limbs Extremities: Cellulitis over left lower extremity. New blistering developing over the left lateral aspect. Changes now extending to the back of the leg with blistering. Data 12/03/24 04:21 12/03/24 04:21 A&P Assessment and plan 1. Sepsis with acute renal failure without septic shock, due to unspecified organism, unspecified acute renal failure type: Blood cultures negative to date. Continue meropenem and vancomycin with improved results today. 2. Cellulitis of left lower extremity: As above 3. Morbid obesity with BMI of 70 and over, adult: Patient with previous gastric bypass; failed. 4. Obstructive sleep apnea on CPAP: Continue nightly CPAP 5. Hypertension: 6. Allergic reaction: Plan: Patient's cellulitis is currently stable. While blood cultures are negative at this point patient did not respond to Zosyn alone. Would continue IV antibiotics for another 24 hours. Renal failure resolved with a BUN/creatinine of 14 and 0.8 today. DC planning anticipate another 24 hours of IV antibiotics and possibly home tomorrow on p.o. depending on improvement. 11/29/24 : Ck has developed hives today, suspected srug allergy. Received iv benadryl, hydrocortisone with improvement. rash may be related to beta lactam meropenem given h/o allergy to PCN in the past though unknonw reaction. Alternatively, may be related to vancomycin use. Of the two, will d/c meropenem today and switch to aztreonam. If rash re appears after discontinuing meropenem may be related to iv vancomycin alternately in which case we will switch this coverage. cellulitis persists, patient reports no significant change, streaking to left popliteal fossa today. November 30, 2024 Cellulitis appears to have stabilized. Deep red to purple color changes appreciated. No further streaking. Yesterday he developed hives after vancomycin infusion, therefore now suspect that reaction may have been from vancomycin rather than meropenem. Vancomycin discontinued, changed to oral linezolid 600 mg every 12 hours. Trial meropenem again and assess for any adverse reactions. It would be important to see if he is truly allergic to beta-lactam's as at discharge I anticipate transitioning him to oral beta-lactam's. As needed hydrocortisone and Benadryl has been ordered in case he develops a severe reaction. Closely monitor today with this change. Azithromycin 500 mg daily was additionally added for Potential cat scratch disease given slow improvement. A small open wound has appeared on the medial aspect of his left leg just above the medial malleolus. Minimal crusting is noted, no obvious discharge at this time. This may have been the site of the original cat scratch. Will obtain ultrasound of the soft tissue to assess for any underlying abscess. Ideally would have preferred to perform a CAT scan, however patient weighs over 400 pounds and will be unable to fit in our CAT scan machine. Continue CPAP at nighttime for obesity hypoventilation syndrome. Current daytime requirement of supplemental O2 at 1 L/min. December 01, 2024 Overall area of cellulitis remained stable, however he has developed new blistering over the lateral aspect. Suspect that this is related to changing swelling and easy skin shearing as a result. In part patient swelling is contributed by being in a recliner all day and lower extremities remaining dependent as a result. Blood pressure noted to be systolic between 150-160, started on amlodipine 5 mg p.o. daily. He did not have any adverse reaction with starting meropenem. Will transition patient to oral cefdinir, azithromycin and linezolid today. If cellulitis remains stable over the next 24 hours with transition to oral antibiotics, will likely be able to discharge on this regimen. Closely monitor the new blistering that is encountered over the left lateral aspect of the foot. Last evening patient had sinus tachycardia with heart rate going up to 180 with minimal exertion. CTA of the chest was performed after confirming with radiology that the patient will be able to fit in our scanner. This study was negative for PE. Will trial Lasix 40 mg IV today and then attempt to minimize edema around the lower extremities. December 02, 2024 Noted to have new erythema affecting the posterior aspect of his affected leg today. Some new blistering additionally encountered over the posterior aspect. He remains afebrile. Patient was changed to oral antibiotics yesterday in anticipation of discharge today, however given some worsening noted over the posterior aspect today, we will transition back to IV meropenem, oral linezolid and oral azithromycin. No cultures are available to guide empiric therapy, however given worsening off of pseudomonal coverage, will resume meropenem again. Additionally consult OT for lymphedema wraps. Elevate legs in recliner. Add Lasix 40 mg IV in an attempt to minimize lower extremity edema. Increase amlodipine to 10mg daily December 03, 2024 No further extension compared to yesterday. Blistering over the posterior and lateral aspect has remained stable. No pus currently. Tolerating lymphedema wrap over the leg. Continue IV meropenem linezolid and azithromycin today. White blood cell count elevated at 12.2 again today. Closely monitor over the next 24 hours. Creatinine at 0.5, tolerating diuresis. PDMP PDMP Reviewed: Not Reviewed Attestations 2 Medical Necessity Statement*: Continued need for IV antibiotics. Cellulitis appears to be stabilizing again. Coding Level of Care Code Acute Code for [facility] Fwd Diagnoses Sepsis with acute renal failure without septic shock, due to unspecified organism, unspecified acute renal failure type A41.9; R65.20; N17.9 Sepsis type: sepsis due to unspecified organism Sepsis acute organ dysfunction status: with acute organ dysfunction Severe sepsis acute organ dysfunction type: acute renal failure Acute renal failure type: unspecified Severe sepsis shock status: without septic shock Cellulitis of left lower extremity L03.116 Morbid obesity with BMI of 70 and over, adult E66.01; Z68.45 Obstructive sleep apnea on CPAP G47.33 Hypertension I10 Allergic reaction T78.40XA
[2024-12-03] MEDS: morphine 4 mg/mL SDV 1 mL IVP (23:53)
[2024-12-04] VITALS (8 sets, daily range): BP systolic 127–157; BP diastolic 64–93; PULSE 84–95; RESP 16–19; TEMP 36.6–37.5; O2SAT 93–98
[2024-12-04] MEDS: MEROPENEM 2,000 MG in sodium chloride 0.9% (plus) 50 ML 200 MG IV (04:08)
[2024-12-04] MEDS: FUROsemide 10 mg/mL SDV 4mL 40 MG IVP (13:24)
[2024-12-04] MEDS: MEROPENEM 2,000 MG in sodium chloride 0.9% (plus) 50 ML 100 MG IV (13:24)
--- NOTE | 2024-12-04 17:43 | P.PN_ITS ---
Subjective 2 Subjective: Cellulitis is improving today. Significant improvement over the foot and ankle today. Reduce swelling. Blistering over the lateral aspect has ruptured and draining clear serous fluid. Medications: Reviewed: Yes Vitals/I&O/Wt Last Vital Signs Temp 99.5 F 12/04/24 16:00 Pulse 93 12/04/24 16:00 Resp 16 12/04/24 16:00 BP 129/64 12/04/24 16:00 Pulse Ox 97 12/04/24 16:00 O2 Del Method Room Air 12/04/24 16:00 O2 Flow Rate 1 12/04/24 07:31 12/04/24 12/04/24 12/04/24 06:59 14:59 22:59 Intake Total 530 / 1230 410 / 410 Balance 530 / 1230 410 / 410 Weight last 48 hrs Weight 252.651 kg Weight 252.651 kg Physical Exam 2 Narrative: General: No acute distress, AO x3 HEENT: PERRLA, pupils bilaterally equal and reactive, pallors not present Chest: Normal vesicular breath sounds, no added sounds, equal good air entry bilaterally CVS: S1-S2 regular, no murmurs, no tachycardia, no gallops, no rubs Abdomen: Soft, nontender, no organomegaly, bowel sounds present Neuro: No focal deficits, no facial deformity, AO x3, power 5/5 in all limbs Extremities: Cellulitis over left lower extremity. New blistering developing over the left lateral aspect. Changes now extending to the back of the leg with blistering. Data 12/03/24 04:21 12/03/24 04:21 A&P Assessment and plan 1. Sepsis with acute renal failure without septic shock, due to unspecified organism, unspecified acute renal failure type: Blood cultures negative to date. Continue meropenem and vancomycin with improved results today. 2. Cellulitis of left lower extremity: As above 3. Morbid obesity with BMI of 70 and over, adult: Patient with previous gastric bypass; failed. 4. Obstructive sleep apnea on CPAP: Continue nightly CPAP 5. Hypertension: 6. Allergic reaction: Plan: Patient's cellulitis is currently stable. While blood cultures are negative at this point patient did not respond to Zosyn alone. Would continue IV antibiotics for another 24 hours. Renal failure resolved with a BUN/creatinine of 14 and 0.8 today. DC planning anticipate another 24 hours of IV antibiotics and possibly home tomorrow on p.o. depending on improvement. 11/29/24 : Ck has developed hives today, suspected srug allergy. Received iv benadryl, hydrocortisone with improvement. rash may be related to beta lactam meropenem given h/o allergy to PCN in the past though unknonw reaction. Alternatively, may be related to vancomycin use. Of the two, will d/c meropenem today and switch to aztreonam. If rash re appears after discontinuing meropenem may be related to iv vancomycin alternately in which case we will switch this coverage. cellulitis persists, patient reports no significant change, streaking to left popliteal fossa today. November 30, 2024 Cellulitis appears to have stabilized. Deep red to purple color changes appreciated. No further streaking. Yesterday he developed hives after vancomycin infusion, therefore now suspect that reaction may have been from vancomycin rather than meropenem. Vancomycin discontinued, changed to oral linezolid 600 mg every 12 hours. Trial meropenem again and assess for any adverse reactions. It would be important to see if he is truly allergic to beta-lactam's as at discharge I anticipate transitioning him to oral beta-lactam's. As needed hydrocortisone and Benadryl has been ordered in case he develops a severe reaction. Closely monitor today with this change. Azithromycin 500 mg daily was additionally added for Potential cat scratch disease given slow improvement. A small open wound has appeared on the medial aspect of his left leg just above the medial malleolus. Minimal crusting is noted, no obvious discharge at this time. This may have been the site of the original cat scratch. Will obtain ultrasound of the soft tissue to assess for any underlying abscess. Ideally would have preferred to perform a CAT scan, however patient weighs over 400 pounds and will be unable to fit in our CAT scan machine. Continue CPAP at nighttime for obesity hypoventilation syndrome. Current daytime requirement of supplemental O2 at 1 L/min. December 01, 2024 Overall area of cellulitis remained stable, however he has developed new blistering over the lateral aspect. Suspect that this is related to changing swelling and easy skin shearing as a result. In part patient swelling is contributed by being in a recliner all day and lower extremities remaining dependent as a result. Blood pressure noted to be systolic between 150-160, started on amlodipine 5 mg p.o. daily. He did not have any adverse reaction with starting meropenem. Will transition patient to oral cefdinir, azithromycin and linezolid today. If cellulitis remains stable over the next 24 hours with transition to oral antibiotics, will likely be able to discharge on this regimen. Closely monitor the new blistering that is encountered over the left lateral aspect of the foot. Last evening patient had sinus tachycardia with heart rate going up to 180 with minimal exertion. CTA of the chest was performed after confirming with radiology that the patient will be able to fit in our scanner. This study was negative for PE. Will trial Lasix 40 mg IV today and then attempt to minimize edema around the lower extremities. December 02, 2024 Noted to have new erythema affecting the posterior aspect of his affected leg today. Some new blistering additionally encountered over the posterior aspect. He remains afebrile. Patient was changed to oral antibiotics yesterday in anticipation of discharge today, however given some worsening noted over the posterior aspect today, we will transition back to IV meropenem, oral linezolid and oral azithromycin. No cultures are available to guide empiric therapy, however given worsening off of pseudomonal coverage, will resume meropenem again. Additionally consult OT for lymphedema wraps. Elevate legs in recliner. Add Lasix 40 mg IV in an attempt to minimize lower extremity edema. Increase amlodipine to 10mg daily December 03, 2024 No further extension compared to yesterday. Blistering over the posterior and lateral aspect has remained stable. No pus currently. Tolerating lymphedema wrap over the leg. Continue IV meropenem linezolid and azithromycin today. White blood cell count elevated at 12.2 again today. Closely monitor over the next 24 hours. Creatinine at 0.5, tolerating diuresis. December 04, 2024 Cellulitis is improving. Much improved over the foot and ankle today. Continued changes over the mid calf. Blistering over the lateral aspect has deroofed and draining clear serous fluid. Patient states pain is better today. Will transition patient from IV to oral antibiotics again today and closely monitor for any deterioration. Continue IV diuresis. Continue lymphedema wraps. Patient will need to be set up with wound care clinic as outpatient. Appreciate surgical recommendations. PDMP PDMP Reviewed: Not Reviewed Attestations 2 Medical Necessity Statement*: Transition IV to oral antibiotics today. Closely monitor with this change as previously patient had quick deterioration up once transition to oral antibiotics. Coding Level of Care Code Acute Code for [facility] Fwd Diagnoses Sepsis with acute renal failure without septic shock, due to unspecified organism, unspecified acute renal failure type A41.9; R65.20; N17.9 Sepsis type: sepsis due to unspecified organism Sepsis acute organ dysfunction status: with acute organ dysfunction Severe sepsis acute organ dysfunction type: acute renal failure Acute renal failure type: unspecified Severe sepsis shock status: without septic shock Cellulitis of left lower extremity L03.116 Morbid obesity with BMI of 70 and over, adult E66.01; Z68.45 Obstructive sleep apnea on CPAP G47.33 Hypertension I10 Allergic reaction T78.40XA
[2024-12-04] MEDS: morphine 4 mg/mL SDV 1 mL IVP (22:35)
[2024-12-05 04:00] VITALS: BP 131/82; PULSE 82; RESP 21; TEMP 36.7; O2SAT 97
[2024-12-05 04:49] LABS: Hematocrit 42.1 % (37-53); Hemoglobin 13.30 g/dL (11.27-16.99); Mean Corpuscular HGB Conc 31.6 g/dL (30-55); Mean Corpuscular Hemoglobin 30.0 pg (27-33); Mean Corpuscular Volume 95.0 fl (82-101); Nucleated Red Blood Cells % 0 %; Platelet Count 325 10^3/cmm (157-399); Red Blood Count 4.43 10^6/uL (3.85-5.65); White Blood Count 14.64 10^3/uL (3.29-11.43)
[2024-12-05 05:20] LABS: Alanine Aminotransferase 40 U/L (0-41); Albumin Level 3.1 g/dL (3.5-5.2); Alkaline Phosphatase 73 U/L (40-130); Aspartate Amino Transferase 35 U/L (0-40); Blood Urea Nitrogen 9 mg/dL (6-20); Calcium 8.2 mg/dL (8.5-10.5); Carbon Dioxide 29 mmol/L (22-29); Chloride 98 mmol/L (98-107); Globulin 3.9 g/dL (1.3-4.6); Glucose 89 mg/dL (65-115); Osmolality Calculated 286 mOsm/kg (285-295); Sodium 139 mmol/L (136-145); Total Protein 7.0 g/dL (6.6-8.7)
[2024-12-05 05:22] LABS: Creatinine Clr Calc Pharmacy 305.4672
[2024-12-05 05:23] LABS: Anion Gap 16.0 (5-19); Potassium 4.0 mmol/L (3.5-5.1)
[2024-12-05 07:52] VITALS: BP 144/73; PULSE 87; RESP 18; TEMP 36.7; O2SAT 98
--- NOTE | 2024-12-05 08:57 | P.PN_ITS ---
Subjective 2 Subjective: Patient has been doing okay. Left lower extremity cellulitis has remained stable, no significant changes in clinical condition Vitals/I&O/Wt Last Vital Signs Temp 98.0 F 12/05/24 07:52 Pulse 87 12/05/24 07:52 Resp 18 12/05/24 07:52 BP 144/73 12/05/24 07:52 Pulse Ox 98 12/05/24 07:52 O2 Del Method Nasal Cannula 12/05/24 07:52 O2 Flow Rate 1 12/04/24 07:31 12/04/24 12/05/24 12/05/24 22:59 06:59 14:59 Intake Total 360 / 360 Balance 360 / 360 Weight last 48 hrs Weight 539 lb 6.4 oz Weight 557 lb Physical Exam 2 Extremity: NARRATIVE EXTREMITY EXAM: Left lower extremity has stable redness and induration, no significant changes over the last 24 hours. Data 12/05/24 04:31 12/05/24 04:31 A&P Assessment and plan 1. Cellulitis of left lower extremity: Plan: Patient continues to have a stable cellulitis of the left lower extremity. While there is no worsening there is also no significant improvement over the last 24 hours. Will continue to monitor on a daily basis, no intervention from the surgical standpoint is anticipated at this time. PDMP PDMP Reviewed: Not Reviewed Attestations 2 Medical Necessity Statement*: Per medical team Coding Level of Care Code Acute Code for [facility] Fwd Diagnoses Cellulitis of left lower extremity L03.116
--- NOTE | 2024-12-05 11:42 | PC.NURSE ---
Dr. Villanueva stated patient could be discharged after cotton wraps were sent to the floor with extra ones sent home with patient until he could get set up with wound care. Patient is to be rewrapped before discharge.
[2024-12-05 11:43] VITALS: BP 154/83; PULSE 86; RESP 18; TEMP 36.6; O2SAT 96
[2024-12-05] MEDS: FUROsemide 10 mg/mL SDV 4mL 40 MG IVP (12:37)
[2024-12-05 13:19] VITALS: BP 154/83; PULSE 86; RESP 18; TEMP 36.6; O2SAT 96
--- NOTE | 2024-12-05 14:06 | PC.NURSE ---
Discussed discharge and medications throughly with patient and Family member. One dose of antibiotic for Linzolid and Ciprofloxacin sent with patient for evening dose. Instructed to take at 9 pm. Went over follow up visits with patient and family member as well. Both verbalized understanding.
--- NOTE | 2024-12-05 15:50 | PM.DCS ---
Discharge Providers Date of Admission: 11/27/24 11:14 Date of Discharge: December 05, 2024 Attending Provider at Admission: Felix Selby DO Attending Provider at Discharge: Vianca Villanueva MD Primary Care Provider: Bernice Buchanan MD Diagnoses at Discharge Discharge Diagnosis 1. Cellulitis of left lower extremity: Reason for Visit Reason for Visit: R leg swollen can't stay awake Hospital Course Hospital Course Patient is a 44-year-old male with a past medical history of sleep apnea, hypertension, chronic bilateral lower extremity lymphedema and stasis dermatitis who presented to the hospital on November 26, 2024 with left lower extremity cellulitis. Patient was started on treatment with IV antibiotics with course complicated by allergic reaction to IV vancomycin. Patient showed an initial improvement over the first 2 to 3 days, however with attempting to narrow antibiotic coverage to oral antibiotics anticipating discharge, he did have worsening of his cellulitis on December 02, 2024. He developed interval blistering and increasing cellulitis affecting particularly the lateral and posterior calfs. He was transition back to IV antibiotics with meropenem linezolid and azithromycin (reported cat scratch) and slowly started to improve. Additionally also received lymphedema wraps, IV Lasix to minimize lower extremity swelling. Hospital course was complicated by development of sinus tachycardia and an elevated D-dimer. CTA of the chest was performed which ruled out PE. CT of the lower extremity did not show any drainable abscesses. Surgical service was consulted to assess for any debridement/unroofing given persistence of symptoms, however patient slowly did start to improve after initiation of lymphedema wraps and IV Lasix along with broadening antibiotic coverage. Unfortunately culture data has remained unrevealing during the course of admission. Patient has slowly shown improvement today by December 05, 2024 W[employer] QUALITY ASSISTANT being discharged with transition to oral ciprofloxacin and linezolid for the next 7 days. Patient is instructed to continue lymphedema wraps. Referral provided to wound care at the time of discharge given development of shallow ulceration as the blisters are opening and unroofing spontaneously. Patient will likely need continued ongoing wound care for the next few weeks. Instructed to return to emergency room in case of fever more than 101 or worsening cellulitis Physical Exam Narrative: General: No acute distress, AO x3 HEENT: PERRLA, pupils bilaterally equal and reactive, pallors not present Chest: Normal vesicular breath sounds, no added sounds, equal good air entry bilaterally CVS: S1-S2 regular, no murmurs, no tachycardia, no gallops, no rubs Abdomen: Soft, nontender, no organomegaly, bowel sounds present Neuro: No focal deficits, no facial deformity, AO x3, power 5/5 in all limbs Discharge Data Studies Completed and Pending Completed Studies During Hospitalization Category Date Time Status CT lower leg LT wo con* [id number] Routine Cat Scan 12/02/24 13:02 Completed CTA chest [CT angio chest PE protcl [id number]] Routine Cat Scan 12/01/24 10:50 Completed US soft tissue and or extremity [US soft tissue/ Ultrasound 11/30/24 15:56 Completed extremity 11719] Routine US venous duplex lower extremity bilat [CV venous Ultrasound 11/26/24 18:16 [place] [id number]] Stat Radiology Impressions Venous Duplex 11/26/24 18:16 IMPRESSION: Limited examination without sonographic evidence of deep venous thrombosis. Soft Tissue Ultrasound 11/30/24 15:56 IMPRESSION: Findings consistent with cellulitis and edema. No demonstrable abscess Chest CTA 12/01/24 10:50 IMPRESSION: Nondiagnostic evaluation of the pulmonary arteries. It would be difficult to exclude pulmonary embolism on this exam. No RIGHT heart strain. No pneumonia. Lower Extremity CT 12/02/24 13:02 IMPRESSION: 1. Diffuse soft tissue edema corresponding with clinically provided history of cellulitis. No drainable abscess. 2. Diffuse soft tissue calcification, which may represent sequela of chronic venous stasis. 3. Arthritis of the knee, ankle, and midfoot. Laboratory Results WBC 14.64 10^3/uL (3.29-11.43) H 12/05/24 04:31 RBC 4.43 10^6/uL (3.85-5.65) 12/05/24 04:31 Hgb 13.30 g/dL (11.27-16.99) 12/05/24 04:31 Hct 42.1 % (37-53) 12/05/24 04:31 MCV 95.0 fl (82-101) 12/05/24 04:31 MCH 30.0 pg (27-33) 12/05/24 04:31 MCHC 31.6 g/dL (30-55) 12/05/24 04:31 RDW 13.8 % (12.1-15.1) 12/05/24 04:31 Plt Count 325 10^3/cmm (157-399) 12/05/24 04:31 MPV 9.9 fL (7.4-10.4) 12/05/24 04:31 Neut % (Auto) 73.6 % 12/05/24 04:31 Lymph % (Auto) 13.4 % 12/05/24 04:31 Callahan % (Auto) 8.4 % 12/05/24 04:31 Eos % (Auto) 3.1 % 12/05/24 04:31 Baso % (Auto) 0.5 % 12/05/24 04:31 Neut # (Auto) 10.78 10^3/uL (1.8-7.7) H 12/05/24 04:31 Lymph # (Auto) 2.0 10^3/uL (0.8-4.8) 12/05/24 04:31 Callahan # (Auto) 1.2 10^3/uL (0.2-0.9) H 12/05/24 04:31 Eos # (Auto) 0.5 10^3/uL (0.0-0.8) 12/05/24 04:31 Baso # (Auto) 0.1 10^3/uL (0.0-0.1) 12/05/24 04:31 Nucleated RBC % (auto) 0 % 12/05/24 04:31 Nucleated RBCs # 0.0 /100WBC 12/05/24 04:31 D-Dimer 1.35 ug/mLFEU (0-0.59) H 11/30/24 19:14 Specimen Type Arterial 11/26/24 17:04 Sample Site Brachial, right 11/26/24 17:04 ABG pH 7.49 (7.35-7.45) H 11/26/24 17:04 ABG pCO2 32.4 mmHg (35-45) L 11/26/24 17:04 ABG pO2 61.3 mmHg (80.0-100.0) L 11/26/24 17:04 ABG PO2/FiO2 Ratio 255 11/26/24 17:04 ABG HCO3 24.6 mmol/L (22-26) 11/26/24 17:04 ABG O2 Saturation 92.7 11/26/24 17:04 ABG Base Excess 2.0 mmol/L (-2.0-2.0) 11/26/24 17:04 José Test N/a 11/26/24 17:04 A-a O2 Gradient 9.0 mmHg (5-10) 11/26/24 17:04 Hematocrit 48.3 % (42-52) 11/26/24 17:04 Hgb O2 Saturation 91.0 % (95-100) L 11/26/24 17:04 Carboxyhemoglobin 1.1 %THgb (0.4-20.1) 11/26/24 17:04 Methemoglobin 0.8 % (0.4-1.5) 11/26/24 17:04 Total Hemoglobin 15.8 g/dL (14-18) 11/26/24 17:04 Sodium 135.0 mmol/L (131-143) 11/26/24 17:04 Potassium 3.8 mmol/L (3.5-5.0) 11/26/24 17:04 Glucose 129.0 mg/dL (70-115) H 11/26/24 17:04 Ionized Calcium 1.1 mmol/L (1.1-1.4) 11/26/24 17:04 O2 Delivery Device Nc 11/26/24 17:04 O2 Liters/Min 1.0 % 11/26/24 17:04 FiO2 24.0 % 11/26/24 17:04 Banbury Mixer Operator ID [email or web address] 11/26/24 17:04 Sodium 139 mmol/L (136-145) 12/05/24 04:31 Potassium 4.0 mmol/L (3.5-5.1) 12/05/24 04:31 Chloride 98 mmol/L (98-107) 12/05/24 04:31 Carbon Dioxide 29 mmol/L (22-29) 12/05/24 04:31 Anion Gap 16.0 (5-19) 12/05/24 04:31 BUN 9 mg/dL (6-20) 12/05/24 04:31 Creatinine 0.6 mg/dL (0.7-1.2) L 12/05/24 04:31 GFR Calculation 145.7 mL/min (90-130) H 12/05/24 04:31 Glucose 89 mg/dL (65-115) 12/05/24 04:31 POC Glucose 190 mg/dL (70-110) H 12/01/24 02:44 Estimat Average Glucose 117 11/27/24 03:26 Hemoglobin A1c 5.7 % (4.0-6.0) 11/27/24 03:26 Calculated Osmolality 286 mOsm/kg (285-295) 12/05/24 04:31 Lactic Acid 1.5 mmol/L (0.5-2.2) 11/26/24 18:12 Calcium 8.2 mg/dL (8.5-10.5) L 12/05/24 04:31 Magnesium 1.8 mg/dL (1.7-2.3) 11/27/24 03:26 Total Bilirubin 0.6 mg/dL (0.15-1.2) 12/05/24 04:31 AST 35 U/L (0-40) 12/05/24 04:31 ALT 40 U/L (0-41) 12/05/24 04:31 Alkaline Phosphatase 73 U/L (40-130) 12/05/24 04:31 Total Protein 7.0 g/dL (6.6-8.7) 12/05/24 04:31 Albumin 3.1 g/dL (3.5-5.2) L 12/05/24 04:31 Globulin 3.9 g/dL (1.3-4.6) 12/05/24 04:31 Triglycerides 115 mg/dL (0-150) 11/27/24 03:26 Cholesterol 103 mg/dL (0-200) 11/27/24 03:26 LDL Cholesterol, Calc 56 mg/dL (50-129) 11/27/24 03:26 HDL Cholesterol 24 mg/dL (60-100) L 11/27/24 03:26 LDL/HDL Ratio 2.33 RATIO (0.00-3.22) 11/27/24 03:26 Cholesterol/HDL Ratio 4.29 mg/dL (1.0-5.00) 11/27/24 03:26 TSH 1.28 uIU/mL (0.27-4.20) 11/27/24 03:26 Urine Color Schuyler (Yellow) A 12/01/24 06:10 Urine Appearance Clear (CLEAR) 12/01/24 06:10 Urine pH 6.0 (5-7) 12/01/24 06:10 Ur Specific Meraux 1.027 (1.005-1.030) 12/01/24 06:10 Urine Protein 1+ (Negative) A 12/01/24 06:10 Urine Glucose (UA) Negative (Normal) 12/01/24 06:10 Urine Ketones Trace (Negative) 12/01/24 06:10 Urine Blood Negative (Negative) 12/01/24 06:10 Urine Nitrate Negative (Negative) 12/01/24 06:10 Urine Bilirubin 1+ (Negative) H 12/01/24 06:10 Urine Urobilinogen 1.0 mg/dL (Negative) 12/01/24 06:10 Ur Leukocyte Esterase Negative (Negative) 12/01/24 06:10 Urine RBC 6-10 /hpf (0-2) 12/01/24 06:10 Urine WBC 0-5 /hpf (0-5) 12/01/24 06:10 Ur Squamous Epith Cells 0-5 /hpf (0-5) 12/01/24 06:10 Amorphous Sediment Not Reportable 12/01/24 06:10 Urine Bacteria None seen /hpf (NONE) 12/01/24 06:10 Hyaline Casts 1.65 /lpf 12/01/24 06:10 Vancomycin Trough 8.5 ug/mL (10-15) L 11/29/24 11:04 Random Vancomycin 7.1 ug/mL (20.0-40.0) L 11/28/24 10:07 Influenza A (PCR) Negative (Negative) 11/26/24 19:50 Influenza Type B (PCR) Negative (Negative) 11/26/24 19:50 RSV (PCR) Negative (Negative) 11/26/24 19:50 SARS-CoV-2 (PCR) Negative (Negative) 11/26/24 19:50 Vitals Last Vital Signs Temp 97.9 F 12/05/24 13:19 Pulse 86 12/05/24 13:19 Resp 18 12/05/24 13:19 BP 154/83 12/05/24 13:19 Pulse Ox 96 12/05/24 13:19 O2 Del Method Nasal Cannula 12/05/24 11:43 O2 Flow Rate 2 12/05/24 08:00 Discharge Plan Discharge Patient Disposition: Home Condition: Stable Prescriptions: New amlodipine 5 mg Tablet 10 mg PO DAILY 30 Days Qty: 30 0RF ciprofloxacin HCl 500 mg Tablet 500 mg PO BID@0900,2100 7 Days Qty: 14 0RF linezolid 600 mg Tablet 600 mg PO Q12H 7 Days Qty: 14 0RF furosemide [Lasix] 20 mg tablet 20 mg PO DAILY Qty: 30 0RF Rx Instructions: daily for 5 days, then prn Discharge Order = DC NOW: Discharge Order (Routine); Ordered 12/05/24 Ordered By: Vianca Villanueva Other Ambulatory Orders: DME: Oxygen (Order) Location: None Selected Ordered By: Vianca Villanueva Referrals: [facility] – [place] [Outside] Bernice Buchanan MD [Primary Care Provider, Family Practice] - 12/08/24 1:00 pm Jason García MD [Physician, Wound Care] - 4-7 days Referral Note: We have notified your physician's clinic of the need for a follow-up appointment to be scheduled. If you have not heard from them within the next 2 business days, please call them directly. Discharge Diet: Usual diet Discharge Activity: Resume usual activity Patient Instructions: Cellulitis, Ciprofloxacin (By mouth), Furosemide (By mouth) (Lasix), Amlodipine (By mouth), Linezolid (By mouth), Opioid Safety, Patient Portal & Ashlyn Instructions Discharge Attestations Time Spent in Discharge Care*: greater than 30 min Quality Metrics Clinical Quality Measures [ No reported AMI, CVA or VTE this stay] Coding Level of Care Code Acute Code for Chg Fwd Diagnoses Cellulitis of left lower extremity L03.116
== END 2024-12-05 13:25 | disposition home or self-care (01) | DRG 602 ==
LOC: ER 19:19 → MEDSURG 20:00
PROVIDERS: Admitting Provider Internal Medicine; Emergency Provider Family Medicine; PCP Family Medicine; Visit Provider Student in an Organized Health Care Education/Training Program
DX: L03.116 Cellulitis of left lower limb (principal); R65.20 Severe sepsis without septic shock; N17.9 Acute kidney failure, unspecified; E66.2 Morbid (severe) obesity with alveolar hypoventilation; Z68.45 Body mass index [BMI] 70 or greater, adult; A28.1 Cat-scratch disease; Z90.49 Acquired absence of other specified parts of digestive tract; Z82.49 Family history of ischemic heart disease and other diseases of the circulatory system; Z82.3 Family history of stroke; Z82.0 Family history of epilepsy and other diseases of the nervous system; F17.210 Nicotine dependence, cigarettes, uncomplicated; I10 Essential (primary) hypertension; T36.8X5A Adverse effect of other systemic antibiotics, initial encounter; Y92.239 Unspecified place in hospital as the place of occurrence of the external cause; S80.822A Blister (nonthermal), left lower leg, initial encounter; S80.821A Blister (nonthermal), right lower leg, initial encounter; S81.802A Unspecified open wound, left lower leg, initial encounter; L50.0 Allergic urticaria; Z98.84 Bariatric surgery status; R00.0 Tachycardia, unspecified; I87.2 Venous insufficiency (chronic) (peripheral); I89.0 Lymphedema, not elsewhere classified; Z88.0 Allergy status to penicillin; W55.03XA Scratched by cat, initial encounter
CPT/HCPCS: 36415; 36416; 36600; 71275; 73700; 76882; 80048; 80051; 80053; 80061; 80202; 81001; 82330; 82805; 82962; 83036; 83605; 83735; 84443; 85025; 85378; 87040; 87637; 93005; 93970; 94640; 94660; 94760; 96365; 96372; 97124; 97167; 99285; G0378; J1200; J1650; J1720; J1938; J2185; J2270; J3373; J3490; J7030; J7050; J7613; J9999; Q0144

== ENCOUNTER → 2024-12-27 08:03 | Outpatient (BNVA) | payer MEDICAID, SELFPAY | PROVIDERS: PCP Family Medicine; Visit Provider Thoracic Surgery (Cardiothoracic Vascular Surgery) | DX: I96 Gangrene, not elsewhere classified (principal); L97.821 Non-pressure chronic ulcer of other part of left lower leg limited to breakdown of skin | CPT/HCPCS: 97597 ==

== ENCOUNTER → 2025-01-03 09:54 | Outpatient (BNVA) | payer MEDICAID, SELFPAY | PROVIDERS: PCP Family Medicine; Visit Provider Thoracic Surgery (Cardiothoracic Vascular Surgery) | DX: Z09 Encounter for follow-up examination after completed treatment for conditions other than malignant neoplasm (principal); Z87.2 Personal history of diseases of the skin and subcutaneous tissue; I10 Essential (primary) hypertension | CPT/HCPCS: 80048; 99212 ==

== ENCOUNTER 2025-03-08 20:20 | Outpatient (CLI) | payer MEDICAID, SELFPAY | END 2025-03-08 20:21 | disposition home or self-care (01) | LOC: SLEEP 20:20 | PROVIDERS: PCP Family Medicine; Referring Provider Family Medicine; Visit Provider Internal Medicine Pulmonary Disease | DX: G47.33 Obstructive sleep apnea (adult) (pediatric) (principal); G47.36 Sleep related hypoventilation in conditions classified elsewhere | CPT/HCPCS: 95810 ==